=== PATIENT | male | born 1970 | race Caucasian/White ===

== ENCOUNTER 2017-10-08 11:10 | Emergency (ER) | payer OTHER ==
[2017-10-08 11:54] LABS: ADD MAN DIFF? NO
[2017-10-08 12:00] LABS: BASO # 0.1 x10^3/uL (0.0-0.2); BASO % 1 % (0-3); EOS # 0.1 x10^3/uL (0.0-0.7); EOS % 1 % (0-3); HEMATOCRIT 46.5 % (39.0-53.0); LYMPH # 1.8 x10^3/uL (1.0-4.8); LYMPH % 21 % (24-48); MEAN CORPUSCULAR HEMOGLOBIN 30 pg (25-35); MEAN CORPUSCULAR HGB CONC 34 g/dL (31-37); MEAN CORPUSCULAR VOLUME 86 fL (79-100); MONO # 0.4 x10^3/uL (0.0-1.1); MONO % 4 % (0-9); NEUT # 6.2 x10^3uL (1.8-7.7); NEUT % 73 % (31-73); PLATELET COUNT 264 x10^3/uL (140-400); RED BLOOD COUNT 5.39 x10^6/uL (4.30-5.70); WHITE BLOOD COUNT 8.5 x10^3/uL (4.0-11.0)
[2017-10-08 12:14] LABS: ANION GAP 7 (6-14); BLOOD UREA NITROGEN 23 mg/dL (8-26); CALCIUM 8.9 mg/dL (8.5-10.1); CARBON DIOXIDE 30 mmol/L (21-32); CHLORIDE 99 mmol/L (98-107); CREATININE 1.5 mg/dL (0.7-1.3); GFR 50.4; GLUCOSE 355 mg/dL (70-99); POTASSIUM 4.4 mmol/L (3.5-5.1); SODIUM 136 mmol/L (136-145)
[2017-10-08 12:15] LABS: C-REACTIVE PROTEIN 25.2 mg/L (0-3.3)
[2017-10-08 12:21] LABS: LACTIC ACID 2.1 mmol/L (0.4-2.0)
[2017-10-08 13:08] LABS: SEDIMENTATION RATE 22 (0-15)
== END 2017-10-08 14:31 | disposition home or self-care (01) ==
LOC: ER 11:10
DX: E11.621 Type 2 diabetes mellitus with foot ulcer (principal); L97.421 Non-pressure chronic ulcer of left heel and midfoot limited to breakdown of skin; I10 Essential (primary) hypertension; E66.01 Morbid (severe) obesity due to excess calories; Z68.44 Body mass index [BMI] 60.0-69.9, adult; X58.XXXA Exposure to other specified factors, initial encounter; Y93.89 Activity, other specified; Y99.8 Other external cause status; Y92.89 Other specified places as the place of occurrence of the external cause
CPT/HCPCS: 36415; 73630; 80048; 83605; 85025; 85651; 86140; 99285-25

== ENCOUNTER 2017-10-19 13:11 | Inpatient (IN) | payer OTHER ==
[~2017-10-19] VITALS: Ht 170.2 cm; Wt 158.8 kg
[~2017-10-19 13:11] MED LIST: AMLO10TA2 PO; CEPH500T PO; FLUC100T7 PO; FURO40TA4 PO; GLIP5TAB10 PO; HYDR-2758 PO; HYDR100T24 PO; INSU100C4 SQ; INSU100I13 SQ; INSU100I17 SQ; INSU100I27 SQ; LISI-130 PO; LISI-375 PO; METF10003 PO; METO-269 PO; METO100T7 PO; PRAV20TA2 PO
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
[2017-10-19 14:05] LABS: BASO % 1 % (0-3); EOS # 0.1 x10^3/uL (0.0-0.7); EOS % 1 % (0-3); HEMATOCRIT 45.5 % (39.0-53.0); HEMOGLOBIN 15.3 g/dL (13.0-17.5); LYMPH # 1.4 x10^3/uL (1.0-4.8); LYMPH % 21 % (24-48); MEAN CORPUSCULAR HEMOGLOBIN 29 pg (25-35); MEAN CORPUSCULAR HGB CONC 34 g/dL (31-37); MEAN CORPUSCULAR VOLUME 86 fL (79-100); MONO # 0.4 x10^3/uL (0.0-1.1); MONO % 6 % (0-9); NEUT # 4.8 x10^3uL (1.8-7.7); NEUT % 72 % (31-73); PLATELET COUNT 257 x10^3/uL (140-400); RED BLOOD COUNT 5.27 x10^6/uL (4.30-5.70); RED CELL DISTRIBUTION WIDTH 12.9 % (11.5-14.5); WHITE BLOOD COUNT 6.7 x10^3/uL (4.0-11.0)
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
[2017-10-19] MEDS ORDERED: IV NORMAL SALINE 1000ML BAG 1,000 ML IV ONE ×2 (15:00)
[2017-10-19 15:25] LABS: CALCIUM 9.3 mg/dL (8.5-10.1); CREATININE 1.5 mg/dL (0.7-1.3); GFR 50.4; POTASSIUM 3.9 mmol/L (3.5-5.1)
[2017-10-19] MEDS ORDERED: INSULIN REGULAR 100 UNIT/ML 3ML VIAL. IV ONE (15:30)
[2017-10-19 15:33] LABS: ALBUMIN 2.7 g/dL (3.4-5.0); ALBUMIN/GLOBULIN RATIO 0.6 (1.0-1.7); TOTAL BILIRUBIN 0.2 mg/dL (0.2-1.0); TOTAL PROTEIN 7.4 g/dL (6.4-8.2)
[2017-10-19] MEDS ORDERED: DOCUSATE SODIUM 100 MG CAPSULE. PO PRN (15:45)
[2017-10-19] MEDS ORDERED: ACETAMINOPHEN 325 MG TABLET. PO PRN (15:45)
[2017-10-19] MEDS ORDERED: ONDANSETRON PF 4 MG/2 ML VIAL. IV PRN (15:45)
[2017-10-19] MEDS ORDERED: traMADol 50 MG TABLET PO PRN (15:45)
[2017-10-19] MEDS ORDERED: DEXTROSE 50% 25 GM / 50ML DISP.SYRIN. IV PRN (15:45)
[2017-10-19] MEDS ORDERED: PIP/TAZO PER PHARMACY MC PRN (15:45)
[2017-10-19] MEDS ORDERED: MORPHINE SULFATE 2 MG/ML DISP.SYRIN. IV PRN (15:45)
[2017-10-19] MEDS ORDERED: hydrALAZINE 20 MG/ML VIAL. IVP PRN (15:45)
--- NOTE | 2017-10-19 15:59 | PDOC1 ---
History and Physical Date of Admission Date of Admission 10/19/17 Identification/Chief Complaint Chief Complaint left heel wound Source Source: Chart review, Patient History of Present Illness History of Present Illness HPI Patient is a 47 year old morbidly obese male patient who presents to the emergency room with complaints of a worsening wound on the bottom of his left foot. Pt usually sees doc in . has been following a wound care doc in recently for left heel callus. abOUT 1 week ago, he noticed there was a blister at the heel, came to ER, was given keflex and suggested him to stay. Pt said ERP didnot say he had to, so he left. he has mild pain, yesterday evening the patient noticed a foul odor from the wound with clear drainage and came to ER today. Denies fever, chills, cough, sob. He isnot sure if much discharge. Patient also denies any fever. Patient states he has been applying gauze and tape to the area for dressings. The wound initially began as what was a blister on the lateral side of his left foot. Currently, there is a large crack in the skin on the bottom of his foot and an open area in his heel. He has a follow-up appointment with his wound care provider, Dr. Jus Pressley at [facility] on 10/23/17. He was here 2016 for left foot ulcer and got left 2nd toe amputation. Says usually glucose was 120-130s, but in ER 400s, he said didnot take meds since npo. and BP >200. foot XR ok. Past Medical History Cardiovascular: HTN, Hyperlipidemia GI: Constipation Heme/Onc: Anemia NOS Renal/: Chronic renal insuff Endocrine: Diabetes Past Surgical History Past Surgical History r Additional Past Surgical Histo: L 2ND TOE AMPUTATION, R ARM SX Family History Family History: Diabetes, Hypertension Social History ALCOHOL: none Drugs: None Current Medications Current Medications Current Medications Medications (Trade) Dose Ordered Sig/Ronaldo Start Time Stop Time Status Last Admin Dose Admin Acetaminophen (Tylenol) 650 mg PRN Q6HRS PRN 10/19/17 15:45 Cefazolin Sodium 50 ml @ 100 mls/hr 1X ONCE 10/19/17 14:45 10/19/17 15:14 DC 10/19/17 14:56 100 MLS/HR Dextrose (Dextrose 50%-Water Syringe) 12.5 gm PRN Q15MIN PRN 10/19/17 15:45 UNV Docusate Sodium (Colace) 100 mg PRN DAILY PRN 10/19/17 15:45 UNV Heparin Sodium (Porcine) (Heparin Sq) 5,000 unit Q8HRS 10/19/17 22:00 UNV Hydralazine HCl (Apresoline Inj) 10 mg PRN Q4HRS PRN 10/19/17 15:45 UNV Insulin Glargine (Lantus) 30 units QHS 10/19/17 21:00 UNV Insulin Human Lispro (HumaLOG) 15 units TIDAC 10/19/17 16:30 UNV Insulin Human Regular (HumuLIN R VIAL) 10 unit 1X ONCE 10/19/17 15:30 10/19/17 15:31 DC 10/19/17 15:34 10 UNIT Morphine Sulfate (Morphine Sulfate) 2 mg PRN Q2HR PRN 10/19/17 15:45 UNV Ondansetron HCl (Zofran) 4 mg PRN Q6HRS PRN 10/19/17 15:45 UNV Sodium Chloride 1,000 ml @ 1,000 mls/hr 1X ONCE 10/19/17 15:00 10/19/17 15:59 Tramadol HCl (Ultram) 50 mg PRN Q6HRS PRN 10/19/17 15:45 UNV Allergies Allergies Allergies Coded Allergies Type Severity Reaction Last Updated Verified No Known Drug Allergies 05/23/13 No ROS Review of System CONSTITUTIONAL: No fever or chills EYES: No recent changes SKIN: No rash or itching CARDIOVASCULAR: No chest pain, syncope, palpitations, or edema RESPIRATORY: No SOB or cough GASTROINTESTINAL: No nausea, vomiting or abdominal pain NEUROLOGICAL: No headaches or weakness ENDOCRINE: No cold or heat intolerance GENITOURINARY: No urgency or frequency of urination MUSCULOSKELETAL: No back pain or joint pain LYMPHATICS: No enlarged lymph nodes PSYCHIATRIC: No anxiety or depression Physical Exam Physical Exam GEN.: No apparent distress. Alert and oriented. HEENT: Head is normocephalic, atraumatic NECK: Supple. LUNGS: Clear to auscultation. HEART: RRR, S1, S2 present. Peripheral pulses intact ABDOMEN: Soft, nontender. Positive bowel sounds. EXTREMITIES: Without any cyanosis. left heel has open wound about 3cm, deep , mild red discharge. mild tenderness. left 2nd toe amputated. bl leg trace edema. NEUROLOGIC: Normal speech, normal tone PSYCHIATRIC: Normal affect, normal mood. SKIN: No ulcerations Vitals Vitals Vital Signs Date Time Temp Pulse Resp B/P (MAP) Pulse Ox O2 Delivery O2 Flow Rate FiO2 10/19/17 13:20 99.0 94 20 222/105 (144) 99 Room Air 99.0 Labs Labs Laboratory Tests Test 10/19/17 13:50 10/19/17 14:36 White Blood Count 6.7 x10^3/uL (4.0-11.0) Red Blood Count 5.27 x10^6/uL (4.30-5.70) Hemoglobin 15.3 g/dL (13.0-17.5) Hematocrit 45.5 % (39.0-53.0) Mean Corpuscular Volume 86 fL (79-100) Mean Corpuscular Hemoglobin 29 pg (25-35) Mean Corpuscular Hemoglobin Concent 34 g/dL (31-37) Red Cell Distribution Width 12.9 % (11.5-14.5) Platelet Count 257 x10^3/uL (140-400) Neutrophils (%) (Auto) 72 % (31-73) Lymphocytes (%) (Auto) 21 % (24-48) Monocytes (%) (Auto) 6 % (0-9) Eosinophils (%) (Auto) 1 % (0-3) Basophils (%) (Auto) 1 % (0-3) Neutrophils # (Auto) 4.8 x10^3uL (1.8-7.7) Lymphocytes # (Auto) 1.4 x10^3/uL (1.0-4.8) Monocytes # (Auto) 0.4 x10^3/uL (0.0-1.1) Eosinophils # (Auto) 0.1 x10^3/uL (0.0-0.7) Basophils # (Auto) 0.0 x10^3/uL (0.0-0.2) Sodium Level 135 mmol/L (136-145) Potassium Level 3.9 mmol/L (3.5-5.1) Chloride Level 98 mmol/L (98-107) Carbon Dioxide Level 29 mmol/L (21-32) Anion Gap 8 (6-14) Blood Urea Nitrogen 27 mg/dL (8-26) Creatinine 1.5 mg/dL (0.7-1.3) Estimated GFR (Cockcroft-Gault) 50.4 BUN/Creatinine Ratio 18 (6-20) Glucose Level 479 mg/dL (70-99) Lactic Acid Level 2.4 mmol/L (0.4-2.0) Calcium Level 9.3 mg/dL (8.5-10.1) Total Bilirubin 0.2 mg/dL (0.2-1.0) Aspartate Amino Transf (AST/SGOT) 12 U/L (15-37) Alanine Aminotransferase (ALT/SGPT) 20 U/L (16-63) Alkaline Phosphatase 133 U/L (46-116) Total Protein 7.4 g/dL (6.4-8.2) Albumin 2.7 g/dL (3.4-5.0) Albumin/Globulin Ratio 0.6 (1.0-1.7) Glucose (Fingerstick) 431 mg/dL (70-99) Laboratory Tests Test 10/19/17 13:50 10/19/17 14:36 White Blood Count 6.7 x10^3/uL (4.0-11.0) Red Blood Count 5.27 x10^6/uL (4.30-5.70) Hemoglobin 15.3 g/dL (13.0-17.5) Hematocrit 45.5 % (39.0-53.0) Mean Corpuscular Volume 86 fL (79-100) Mean Corpuscular Hemoglobin 29 pg (25-35) Mean Corpuscular Hemoglobin Concent 34 g/dL (31-37) Red Cell Distribution Width 12.9 % (11.5-14.5) Platelet Count 257 x10^3/uL (140-400) Neutrophils (%) (Auto) 72 % (31-73) Lymphocytes (%) (Auto) 21 % (24-48) Monocytes (%) (Auto) 6 % (0-9) Eosinophils (%) (Auto) 1 % (0-3) Basophils (%) (Auto) 1 % (0-3) Neutrophils # (Auto) 4.8 x10^3uL (1.8-7.7) Lymphocytes # (Auto) 1.4 x10^3/uL (1.0-4.8) Monocytes # (Auto) 0.4 x10^3/uL (0.0-1.1) Eosinophils # (Auto) 0.1 x10^3/uL (0.0-0.7) Basophils # (Auto) 0.0 x10^3/uL (0.0-0.2) Sodium Level 135 mmol/L (136-145) Potassium Level 3.9 mmol/L (3.5-5.1) Chloride Level 98 mmol/L (98-107) Carbon Dioxide Level 29 mmol/L (21-32) Anion Gap 8 (6-14) Blood Urea Nitrogen 27 mg/dL (8-26) Creatinine 1.5 mg/dL (0.7-1.3) Estimated GFR (Cockcroft-Gault) 50.4 BUN/Creatinine Ratio 18 (6-20) Glucose Level 479 mg/dL (70-99) Lactic Acid Level 2.4 mmol/L (0.4-2.0) Calcium Level 9.3 mg/dL (8.5-10.1) Total Bilirubin 0.2 mg/dL (0.2-1.0) Aspartate Amino Transf (AST/SGOT) 12 U/L (15-37) Alanine Aminotransferase (ALT/SGPT) 20 U/L (16-63) Alkaline Phosphatase 133 U/L (46-116) Total Protein 7.4 g/dL (6.4-8.2) Albumin 2.7 g/dL (3.4-5.0) Albumin/Globulin Ratio 0.6 (1.0-1.7) Glucose (Fingerstick) 431 mg/dL (70-99) VTE Prophylaxis Ordered VTE Prophylaxis Devices: Yes VTE Pharmacological Prophylaxi: Yes Assessment/Plan Assessment/Plan left heel wound , need to rule out osteomyelitis dm2 on insulin htn urgency CKD3 MILD malnutrition morbid obesity diabetic neuropathy h/o left 2nd foot amputation plan: id, ortho , wound care consult MRI foot. US left lower ext to rule out PAD NEEd verify home meds add lantus 30u qhs, aspart 15u tid, ssi got 2L ivf in ER, regular insulin iv x1 in ER add katja torres for now, fu wound cx, bcx dvt ppx CHERYL DOWLING MD Oct 19, 2017 15:59
--- NOTE | 2017-10-19 16:45 | RAD ---
Left Lower Extremity Arterial Doppler Ultrasound History: Nonhealing wound of the left leg. Comparison: None. Technique: Color Doppler, spectral Doppler, and grayscale images obtained of the lower extremity arteries. Interrogated arteries were common femoral, profunda femoral, superficial femoral, popliteal, posterior tibial, and dorsalis pedis arteries. Findings: Dorsalis pedis artery is not seen, presumably occluded. Other visualized arteries are patent. No focal elevation of velocity to suggest focal stenosis is identified. The patent arteries demonstrate normal triphasic waveforms. Following peak systolic velocities were obtained: Left common femoral artery: 118 cm/sec. Left superficial femoral artery: 123 cm/sec. Left popliteal artery: 90 cm/sec. Left posterior tibial artery: 82 cm/sec. Left dorsalis pedis artery: 0 cm/sec. Grayscale images demonstrate relatively mild atherosclerotic plaquing. Impression: 1. Left dorsalis pedis artery is not visualized, and is presumably occluded. 2. Other arteries of left lower extremity are patent and demonstrate normal triphasic waveforms. 3. Atherosclerosis, thought advanced for patient's age. 4. Correlate with history of diabetes or peripheral vascular disease. Electronically signed by: Justin Clarke MD (10/19/2017 4:41 PM) [place] [id number]
[2017-10-19] MEDS ORDERED: VANCOMYCIN 2 GM in IV NORMAL SALINE 500ML BAG 500 ML IV ONE (17:00)
[2017-10-19] MEDS: INSULIN LISPRO 300 UNITS/3 ML INSULN.PEN. SQ SCH ×2 (17:23→17:27)
[2017-10-19] MEDS: PIPERACILLIN/TAZOBACTAM 4.5 GM in IV NORMAL SALINE 100ML 100 ML IV SCH ×2 (17:39→23:41)
[2017-10-19] MEDS: VANCOMYCIN PER PHARMACY MC PRN ×2 (17:56→19:29)
[2017-10-19] MEDS ORDERED: INSU100I13 SQ (18:04)
[2017-10-19 19:00] VITALS: BP 167/94
[2017-10-19] MEDS: INSULIN GLARGINE 300 UNITS/3 ML INSULN.PEN. SQ SCH (21:12)
[2017-10-19] MEDS: HEPARIN PF for SUB-Q USE 5,000 UNIT/0.5 ML VIAL. SQ SCH (21:13)
[2017-10-19 23:00] VITALS: BP 146/89
[2017-10-20 03:00] VITALS: BP 158/94
[2017-10-20] MEDS: PIPERACILLIN/TAZOBACTAM 4.5 GM in IV NORMAL SALINE 100ML 100 ML IV SCH ×4 (05:30→23:53)
[2017-10-20] MEDS: HEPARIN PF for SUB-Q USE 5,000 UNIT/0.5 ML VIAL. SQ SCH ×3 (05:35→21:17)
[2017-10-20] MEDS ORDERED: VANCOMYCIN 2 GM in IV NORMAL SALINE 500ML BAG 500 ML IV SCH (06:00)
--- NOTE | 2017-10-20 06:46 | PDOC ---
Infectious Disease Note Vital Sign Vital Signs Vital Signs Date Time Temp Pulse Resp B/P (MAP) Pulse Ox O2 Delivery O2 Flow Rate FiO2 10/20/17 03:00 97.8 138 51 158/94 (115) 100 97.8 10/20/17 00:45 Room Air Labs Lab Laboratory Tests Test 10/19/17 13:50 10/19/17 14:36 10/19/17 16:38 10/19/17 17:32 White Blood Count 6.7 x10^3/uL (4.0-11.0) Red Blood Count 5.27 x10^6/uL (4.30-5.70) Hemoglobin 15.3 g/dL (13.0-17.5) Hematocrit 45.5 % (39.0-53.0) Mean Corpuscular Volume 86 fL (79-100) Mean Corpuscular Hemoglobin 29 pg (25-35) Mean Corpuscular Hemoglobin Concent 34 g/dL (31-37) Red Cell Distribution Width 12.9 % (11.5-14.5) Platelet Count 257 x10^3/uL (140-400) Neutrophils (%) (Auto) 72 % (31-73) Lymphocytes (%) (Auto) 21 % (24-48) Monocytes (%) (Auto) 6 % (0-9) Eosinophils (%) (Auto) 1 % (0-3) Basophils (%) (Auto) 1 % (0-3) Neutrophils # (Auto) 4.8 x10^3uL (1.8-7.7) Lymphocytes # (Auto) 1.4 x10^3/uL (1.0-4.8) Monocytes # (Auto) 0.4 x10^3/uL (0.0-1.1) Eosinophils # (Auto) 0.1 x10^3/uL (0.0-0.7) Basophils # (Auto) 0.0 x10^3/uL (0.0-0.2) Sodium Level 135 mmol/L (136-145) Potassium Level 3.9 mmol/L (3.5-5.1) Chloride Level 98 mmol/L (98-107) Carbon Dioxide Level 29 mmol/L (21-32) Anion Gap 8 (6-14) Blood Urea Nitrogen 27 mg/dL (8-26) Creatinine 1.5 mg/dL (0.7-1.3) Estimated GFR (Cockcroft-Gault) 50.4 BUN/Creatinine Ratio 18 (6-20) Glucose Level 479 mg/dL (70-99) Lactic Acid Level 2.4 mmol/L (0.4-2.0) Calcium Level 9.3 mg/dL (8.5-10.1) Total Bilirubin 0.2 mg/dL (0.2-1.0) Aspartate Amino Transf (AST/SGOT) 12 U/L (15-37) Alanine Aminotransferase (ALT/SGPT) 20 U/L (16-63) Alkaline Phosphatase 133 U/L (46-116) Total Protein 7.4 g/dL (6.4-8.2) Albumin 2.7 g/dL (3.4-5.0) Albumin/Globulin Ratio 0.6 (1.0-1.7) Glucose (Fingerstick) 431 mg/dL (70-99) 235 mg/dL (70-99) 259 mg/dL (70-99) Test 10/19/17 19:05 10/19/17 21:02 Lactic Acid Level 2.2 mmol/L (0.4-2.0) Glucose (Fingerstick) 267 mg/dL (70-99) Objective Assessment Left heel ulcer Lactic acidosis DM Tinea PAD CKD Morbid obesity H/p Group B strep/anaerobes and distant Pseudomonas Plan Plan of Care Cont Zosyn D/c Vanc with renal failure Dose Zyvox and Fluconazole Needs debridement May need vascular eval F/u labs and cults Wound care Thank you # [phone] JESU DAVID MD Oct 20, 2017 06:46
[2017-10-20 07:00] VITALS: BP 157/89
[2017-10-20] MEDS: INSULIN LISPRO 300 UNITS/3 ML INSULN.PEN. SQ SCH ×7 (07:56→16:57)
[2017-10-20 08:18] LABS: CALCIUM 8.2 mg/dL (8.5-10.1); CREATININE 1.2 mg/dL (0.7-1.3); GFR 65.2; POTASSIUM 3.7 mmol/L (3.5-5.1)
[2017-10-20 08:25] LABS: BASO % 1 % (0-3); EOS # 0.2 x10^3/uL (0.0-0.7); EOS % 4 % (0-3); HEMATOCRIT 43.5 % (39.0-53.0); HEMOGLOBIN 14.8 g/dL (13.0-17.5); LYMPH # 0.6 x10^3/uL (1.0-4.8); LYMPH % 10 % (24-48); MEAN CORPUSCULAR HEMOGLOBIN 30 pg (25-35); MEAN CORPUSCULAR HGB CONC 34 g/dL (31-37); MEAN CORPUSCULAR VOLUME 87 fL (79-100); MONO # 0.3 x10^3/uL (0.0-1.1); MONO % 6 % (0-9); NEUT # 4.6 x10^3uL (1.8-7.7); NEUT % 80 % (31-73); PLATELET COUNT 223 x10^3/uL (140-400); RED BLOOD COUNT 5.01 x10^6/uL (4.30-5.70); RED CELL DISTRIBUTION WIDTH 13.3 % (11.5-14.5); WHITE BLOOD COUNT 5.7 x10^3/uL (4.0-11.0)
[2017-10-20] MEDS: FLUCONAZOLE 100 MG TABLET. PO SCH (08:56)
[2017-10-20] MEDS: LINEZOLID 600 MG TABLET PO SCH ×2 (08:57→21:16)
[2017-10-20 11:00] VITALS: BP 160/87
--- NOTE | 2017-10-20 12:11 | CONS ---
DATE OF CONSULTATION: 10/20/2017 The patient's room is 574. REQUESTING PHYSICIAN: Dr. Phelps. REASON FOR CONSULTATION: Left heel wound. HISTORY OF PRESENT ILLNESS: The patient is a 47-year-old gentleman with longstanding diabetes who states he checks his sugars periodically and it normally runs about 180s. Also, he recently had been seen at wound care doc, but had not been there for months. He states he goes there periodically, and he debrides callus on his foot. About 10 days ago, he noticed a wound had developed on his left heel. He is uncertain how it happened. He has not changed shoes. He has not had any trauma, denies that he stepped on anything. He states he has enough sensation that he knows when he does step on something. He states the wound started as a blister. He presented to [facility] on 10/08 and was prescribed cephalexin. At that time, apparently he was offered admission; however, he refused. He then returned to the Emergency Room on the as it opened up and had developed a mild increasing pain and odor. He has not had any fevers, chills or sweats. No headaches, no sore throat, no cough, no chest pain, no nausea, no vomiting, no diarrhea. No dysuria, frequency or urgency. He has now been admitted and placed on vancomycin and Zosyn. Cultures are pending. PAST MEDICAL HISTORY: Positive again for the diabetes, history of morbid obesity, history of previous foot infections with group B strep pseudomonas, previous peptostreptococcus. Previous osteomyelitis of his right shoulder, hypertension, I and D of left foot. PAST SURGICAL HISTORY: Positive for left second toe amputation, I and D of his right shoulder. REVIEW OF SYSTEMS: Otherwise negative except for as mentioned above, although sugars have been running over 200, he states now. SOCIAL HISTORY: No tobacco. Works as a mechanical design engineer facilities, lives at home. FAMILY HISTORY: Positive for diabetes, hypertension, heart disease. CURRENT MEDICATIONS: Include Cefazolin x 1. He is on vancomycin and Zosyn. He is on Colace, heparin, hydralazine, insulin, tramadol. Other meds are available and reviewed in the chart. PHYSICAL EXAMINATION: VITAL SIGNS: He has been afebrile since his admission, temperature of 97.8, respirations 18, blood pressure 158/94, satting 100%, heart rate on my exam approximately 20. CONSTITUTIONAL: He is morbidly obese. He is cooperative. He is in no acute distress. HEENT: His pupils are equal. Normal conjunctivae. Oral cavity, oropharynx is clear, some questionable dentition. NECK: Full. No JVD. LUNGS: Decreased in the bases. HEART: S1, S2, not tachycardic. ABDOMEN: Obese, soft, nontender, nondistended, positive bowel sounds. EXTREMITIES: No clubbing, cyanosis. His lower extremity has 1-2+ edema. There are some mild chronic changes of his left lower extremity. His left heel has an area of maceration and open wound, there is no pus. There is no gross erythema. There is no gross odor. He does have significant tenia around his foot. I cannot palpate bone in the wound, left second toe amputation and clean. SKIN: Otherwise without signs of rash. NEUROLOGIC: Nonfocal, answers questions appropriately. PSYCHIATRIC: Affect is pleasant. LABORATORY DATA: White count 6.7, hemoglobin 15.3, platelets of 257, neutrophils 72, lymphs are 21, creatinine 1.5. Glucose was 479. Lactic acid was 2.4. Repeat lactic acid was 2.2. X-rays of his foot, no acute bony abnormality detected. Arterial Doppler, left dorsalis pedis artery not visualized and presumably occluded in other arteries, lower extremity patent and demonstrate normal triphasic waveforms. IMPRESSION: 1. Left heel ulcer. 2. Lactic acidosis. 3. Diabetes. 4. Tinea. 5. Peripheral arterial disease. 6. Chronic kidney disease. 7. Morbid obesity. 8. History of group B strep, anaerobes and distant pseudomonas. RECOMMENDATIONS: 1. We will continue Zosyn. 2. We will discontinue vancomycin with his renal failure, but also because of his morbid obesity may not be able to achieve adequate levels. We will dose Zyvox, fluconazole. He needs debridement, may need vascular evaluation. Follow up labs and cultures and continue local wound care. Thank you for the opportunity to participate in the patient's care. If you have any questions, please do not hesitate to contact me. JESU DAVID MD DR: Alejandra JOB#: [id number] / [id number]
--- NOTE | 2017-10-20 14:32 | PDOC ---
Provider Note Provider Note Vascular consult dictated Imp: 1. morbid obesity 2. 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 DM with peripheral neuropathy 4. no evidence of significant arterial occlusive disease based on arterial duplex scan done in June, 5. status post left 2nd toe and dorsal foot debridement in June with complete healing Rec: 1. IV antibx 2. left heel debridement. Scheduled as add-on for Sunday. SHERIF GARCIA II, MD Oct 20, 2017 14:32
[2017-10-20 15:00] VITALS: BP 180/98
--- NOTE | 2017-10-20 16:37 | PDOC ---
PROGRESS NOTES Chief Complaint Chief Complaint left heel wound , need to rule out osteomyelitis dm2 on insulin htn urgency CKD3 MILD malnutrition morbid obesity diabetic neuropathy h/o left 2nd foot amputation History of Present Illness History of Present Illness DC tele vascular , wound care consult MRI foot. lantus 30u qhs, aspart increase IV abx, ID following dvt ppx Vitals Vitals Vital Signs Date Time Temp Pulse Resp B/P (MAP) Pulse Ox O2 Delivery O2 Flow Rate FiO2 10/20/17 15:00 97.5 68 18 180/98 (125) 95 Room Air 97.5 Physical Exam General: Alert, Oriented X3, Cooperative, No acute distress Heart: Regular rate Lungs: Clear Abdomen: Soft Extremities: No clubbing Skin: No breakdown Labs LABS Laboratory Tests Test 10/19/17 16:38 10/19/17 17:32 10/19/17 19:05 10/19/17 21:02 Glucose (Fingerstick) 235 mg/dL (70-99) 259 mg/dL (70-99) 267 mg/dL (70-99) Lactic Acid Level 2.2 mmol/L (0.4-2.0) Test 10/20/17 07:30 10/20/17 07:42 10/20/17 10:40 White Blood Count 5.7 x10^3/uL (4.0-11.0) Red Blood Count 5.01 x10^6/uL (4.30-5.70) Hemoglobin 14.8 g/dL (13.0-17.5) Hematocrit 43.5 % (39.0-53.0) Mean Corpuscular Volume 87 fL (79-100) Mean Corpuscular Hemoglobin 30 pg (25-35) Mean Corpuscular Hemoglobin Concent 34 g/dL (31-37) Red Cell Distribution Width 13.3 % (11.5-14.5) Platelet Count 223 x10^3/uL (140-400) Neutrophils (%) (Auto) 80 % (31-73) Lymphocytes (%) (Auto) 10 % (24-48) Monocytes (%) (Auto) 6 % (0-9) Eosinophils (%) (Auto) 4 % (0-3) Basophils (%) (Auto) 1 % (0-3) Neutrophils # (Auto) 4.6 x10^3uL (1.8-7.7) Lymphocytes # (Auto) 0.6 x10^3/uL (1.0-4.8) Monocytes # (Auto) 0.3 x10^3/uL (0.0-1.1) Eosinophils # (Auto) 0.2 x10^3/uL (0.0-0.7) Basophils # (Auto) 0.0 x10^3/uL (0.0-0.2) Sodium Level 137 mmol/L (136-145) Potassium Level 3.7 mmol/L (3.5-5.1) Chloride Level 102 mmol/L (98-107) Carbon Dioxide Level 27 mmol/L (21-32) Anion Gap 8 (6-14) Blood Urea Nitrogen 22 mg/dL (8-26) Creatinine 1.2 mg/dL (0.7-1.3) Estimated GFR (Cockcroft-Gault) 65.2 Glucose Level 274 mg/dL (70-99) Calcium Level 8.2 mg/dL (8.5-10.1) Glucose (Fingerstick) 266 mg/dL (70-99) 245 mg/dL (70-99) Assessment and Plan Assessmemt and Plan cont current Comment Review of Relevant I have reviewed the following items harsh (where applicable) has been applied. Labs Laboratory Tests Test 10/19/17 13:50 10/19/17 14:36 10/19/17 16:38 10/19/17 17:32 White Blood Count 6.7 x10^3/uL (4.0-11.0) Red Blood Count 5.27 x10^6/uL (4.30-5.70) Hemoglobin 15.3 g/dL (13.0-17.5) Hematocrit 45.5 % (39.0-53.0) Mean Corpuscular Volume 86 fL (79-100) Mean Corpuscular Hemoglobin 29 pg (25-35) Mean Corpuscular Hemoglobin Concent 34 g/dL (31-37) Red Cell Distribution Width 12.9 % (11.5-14.5) Platelet Count 257 x10^3/uL (140-400) Neutrophils (%) (Auto) 72 % (31-73) Lymphocytes (%) (Auto) 21 % (24-48) Monocytes (%) (Auto) 6 % (0-9) Eosinophils (%) (Auto) 1 % (0-3) Basophils (%) (Auto) 1 % (0-3) Neutrophils # (Auto) 4.8 x10^3uL (1.8-7.7) Lymphocytes # (Auto) 1.4 x10^3/uL (1.0-4.8) Monocytes # (Auto) 0.4 x10^3/uL (0.0-1.1) Eosinophils # (Auto) 0.1 x10^3/uL (0.0-0.7) Basophils # (Auto) 0.0 x10^3/uL (0.0-0.2) Sodium Level 135 mmol/L (136-145) Potassium Level 3.9 mmol/L (3.5-5.1) Chloride Level 98 mmol/L (98-107) Carbon Dioxide Level 29 mmol/L (21-32) Anion Gap 8 (6-14) Blood Urea Nitrogen 27 mg/dL (8-26) Creatinine 1.5 mg/dL (0.7-1.3) Estimated GFR (Cockcroft-Gault) 50.4 BUN/Creatinine Ratio 18 (6-20) Glucose Level 479 mg/dL (70-99) Lactic Acid Level 2.4 mmol/L (0.4-2.0) Calcium Level 9.3 mg/dL (8.5-10.1) Total Bilirubin 0.2 mg/dL (0.2-1.0) Aspartate Amino Transf (AST/SGOT) 12 U/L (15-37) Alanine Aminotransferase (ALT/SGPT) 20 U/L (16-63) Alkaline Phosphatase 133 U/L (46-116) Total Protein 7.4 g/dL (6.4-8.2) Albumin 2.7 g/dL (3.4-5.0) Albumin/Globulin Ratio 0.6 (1.0-1.7) Glucose (Fingerstick) 431 mg/dL (70-99) 235 mg/dL (70-99) 259 mg/dL (70-99) Test 10/19/17 19:05 10/19/17 21:02 10/20/17 07:30 10/20/17 07:42 Lactic Acid Level 2.2 mmol/L (0.4-2.0) Glucose (Fingerstick) 267 mg/dL (70-99) 266 mg/dL (70-99) White Blood Count 5.7 x10^3/uL (4.0-11.0) Red Blood Count 5.01 x10^6/uL (4.30-5.70) Hemoglobin 14.8 g/dL (13.0-17.5) Hematocrit 43.5 % (39.0-53.0) Mean Corpuscular Volume 87 fL (79-100) Mean Corpuscular Hemoglobin 30 pg (25-35) Mean Corpuscular Hemoglobin Concent 34 g/dL (31-37) Red Cell Distribution Width 13.3 % (11.5-14.5) Platelet Count 223 x10^3/uL (140-400) Neutrophils (%) (Auto) 80 % (31-73) Lymphocytes (%) (Auto) 10 % (24-48) Monocytes (%) (Auto) 6 % (0-9) Eosinophils (%) (Auto) 4 % (0-3) Basophils (%) (Auto) 1 % (0-3) Neutrophils # (Auto) 4.6 x10^3uL (1.8-7.7) Lymphocytes # (Auto) 0.6 x10^3/uL (1.0-4.8) Monocytes # (Auto) 0.3 x10^3/uL (0.0-1.1) Eosinophils # (Auto) 0.2 x10^3/uL (0.0-0.7) Basophils # (Auto) 0.0 x10^3/uL (0.0-0.2) Sodium Level 137 mmol/L (136-145) Potassium Level 3.7 mmol/L (3.5-5.1) Chloride Level 102 mmol/L (98-107) Carbon Dioxide Level 27 mmol/L (21-32) Anion Gap 8 (6-14) Blood Urea Nitrogen 22 mg/dL (8-26) Creatinine 1.2 mg/dL (0.7-1.3) Estimated GFR (Cockcroft-Gault) 65.2 Glucose Level 274 mg/dL (70-99) Calcium Level 8.2 mg/dL (8.5-10.1) Test 10/20/17 10:40 Glucose (Fingerstick) 245 mg/dL (70-99) Laboratory Tests Test 10/19/17 16:38 10/19/17 17:32 10/19/17 19:05 10/19/17 21:02 Glucose (Fingerstick) 235 mg/dL (70-99) 259 mg/dL (70-99) 267 mg/dL (70-99) Lactic Acid Level 2.2 mmol/L (0.4-2.0) Test 10/20/17 07:30 10/20/17 07:42 10/20/17 10:40 White Blood Count 5.7 x10^3/uL (4.0-11.0) Red Blood Count 5.01 x10^6/uL (4.30-5.70) Hemoglobin 14.8 g/dL (13.0-17.5) Hematocrit 43.5 % (39.0-53.0) Mean Corpuscular Volume 87 fL (79-100) Mean Corpuscular Hemoglobin 30 pg (25-35) Mean Corpuscular Hemoglobin Concent 34 g/dL (31-37) Red Cell Distribution Width 13.3 % (11.5-14.5) Platelet Count 223 x10^3/uL (140-400) Neutrophils (%) (Auto) 80 % (31-73) Lymphocytes (%) (Auto) 10 % (24-48) Monocytes (%) (Auto) 6 % (0-9) Eosinophils (%) (Auto) 4 % (0-3) Basophils (%) (Auto) 1 % (0-3) Neutrophils # (Auto) 4.6 x10^3uL (1.8-7.7) Lymphocytes # (Auto) 0.6 x10^3/uL (1.0-4.8) Monocytes # (Auto) 0.3 x10^3/uL (0.0-1.1) Eosinophils # (Auto) 0.2 x10^3/uL (0.0-0.7) Basophils # (Auto) 0.0 x10^3/uL (0.0-0.2) Sodium Level 137 mmol/L (136-145) Potassium Level 3.7 mmol/L (3.5-5.1) Chloride Level 102 mmol/L (98-107) Carbon Dioxide Level 27 mmol/L (21-32) Anion Gap 8 (6-14) Blood Urea Nitrogen 22 mg/dL (8-26) Creatinine 1.2 mg/dL (0.7-1.3) Estimated GFR (Cockcroft-Gault) 65.2 Glucose Level 274 mg/dL (70-99) Calcium Level 8.2 mg/dL (8.5-10.1) Glucose (Fingerstick) 266 mg/dL (70-99) 245 mg/dL (70-99) Microbiology 10/19/17 Blood Culture - Preliminary, Resulted NO GROWTH AFTER 1 DAY Medications Current Medications Cefazolin Sodium 50 ml @ 100 mls/hr 1X ONCE IV Last administered on at 14:56; Start 10/19/17 at 14:45; Stop 10/19/17 at 15:14; Status DC Sodium Chloride 1,000 ml @ 1,000 mls/hr 1X ONCE IV Last administered on at 14:55; Start 10/19/17 at 15:00; Stop 10/19/17 at 15:59; Status DC Sodium Chloride 1,000 ml @ 1,000 mls/hr 1X ONCE IV Last administered on at 16:35; Start 10/19/17 at 15:00; Stop 10/19/17 at 15:59; Status DC Insulin Human Regular (HumuLIN R VIAL) 10 unit 1X ONCE IV Last administered on 10/19/17at 15:34; Start 10/19/17 at 15:30; Stop 10/19/17 at 15:31; Status DC Acetaminophen (Tylenol) 650 mg PRN Q6HRS PRN PO FEVER; Start 10/19/17 at 15:45 Ondansetron HCl (Zofran) 4 mg PRN Q6HRS PRN IV NAUSEA/VOMITING; Start 10/19/17 at 15:45 Morphine Sulfate (Morphine Sulfate) 2 mg PRN Q2HR PRN IV MODERATE TO SEVERE PAIN; Start 10/19/17 at 15:45 Tramadol HCl (Ultram) 50 mg PRN Q6HRS PRN PO MILD TO MODERATE PAIN Last administered on 10/19/17at 23:45; Start 10/19/17 at 15:45 Hydralazine HCl (Apresoline Inj) 10 mg PRN Q4HRS PRN IVP ELEVATED BP, SEE COMMENTS; Start 10/19/17 at 15:45 Docusate Sodium (Colace) 100 mg PRN DAILY PRN PO HARD STOOLS; Start 10/19/17 at 15:45 Insulin Human Lispro (HumaLOG) 0-9 UNITS TIDWMEALS SQ Last administered on 10/20at 11:20; Start 10/19/17 at 17:00 Dextrose (Dextrose 50%-Water Syringe) 12.5 gm PRN Q15MIN PRN IV SEE COMMENTS; Start 10/19/17 at 15:45 Insulin Glargine (Lantus) 30 units QHS SQ Last administered on 10/19/17at 21:12 ; Start 10/19/17 at 21:00 Insulin Human Lispro (HumaLOG) 15 units TIDAC SQ Last administered on at 11:19; Start 10/19/17 at 16:30; Stop 10/20/17 at 13:37; Status DC Heparin Sodium (Porcine) (Heparin Sq) 5,000 unit Q8HRS SQ Last administered on 10/20/17at 05:35; Start 10/19/17 at 22:00 Vancomycin HCl (Vanco Per Pharmacy) 1 each PRN DAILY PRN MC SEE COMMENTS Last administered on 10/19/17at 19:29; Start 10/19/17 at 15:45; Stop 10/20/17 at 06:46 ; Status DC Vancomycin HCl 2 gm/Sodium Chloride 500 ml @ 250 mls/hr ONCE ONCE IV Last administered on 10/19/17at 18:23; Start 10/19/17 at 17:00; Stop 10/19/17 at 18:59 ; Status DC Piperacillin Sod/ Tazobactam Sod 4.5 gm/Sodium Chloride 100 ml @ 200 mls/hr Q6HRS IV Last administered on 10/20/17at 11:22; Start 10/19/17 at 16:30 Piperacillin Sod/ Tazobactam Sod (Zosyn Per Pharmacy) 1 each PRN DAILY PRN MC SEE COMMENTS; Start 10/19/17 at 15:45 Vancomycin HCl 2 gm/Sodium Chloride 500 ml @ 250 mls/hr Q12H IV Last administered on 10/20/17at 05:54; Start 10/20/17 at 06:00; Stop 10/20/17 at 06:46 ; Status DC Vancomycin HCl (Vancomycin Trough Level) 1 each 1X ONCE MC ; Start 10/21/17 at 05:30; Stop 10/21/17 at 05:31; Status Cancel Fluconazole (Diflucan) 200 mg DAILY PO Last administered on 10/20/17at 08:56; Start 10/20/17 at 09:00 Linezolid (Zyvox) 600 mg BID PO Last administered on 10/20/17at 08:57; Start 01/27 at 09:00 Lactobacillus Rhamnosus (Culturelle) 1 cap BID PO ; Start 10/20/17 at 21:00 Insulin Human Lispro (HumaLOG) 18 units TIDAC SQ ; Start 10/20/17 at 14:00 Active Scripts Active Metformin Hcl 1,000 Mg Tablet 1,000 Mg PO BIDWMEALS 30 Days Reported Lantus Solostar (Insulin Glargine,Hum.rec.anlog) 100 Unit/1 Ml Insuln.pen 15 Unit SQ QHS Novolog Flexpen (Insulin Aspart) 100 Unit/1 Ml Insuln.pen 0-15 Unit SQ Novolog Flexpen (Insulin Aspart) 100 Unit/1 Ml Insuln.pen 10 Unit SQ TIDAC Amlodipine Besylate 10 Mg Tablet 10 Mg PO DAILY Hydralazine Hcl 100 Mg Tablet 1 Tab PO TID Furosemide 40 Mg Tablet 1 Tab PO DAILY Lisinopril 40 Mg Tablet 1 Tab PO DAILY Vitals/I & O Vital Sign - Last 24 Hours 10/19/17 10/19/17 10/19/17 10/19/17 19:00 20:00 23:00 23:45 Temp 98.4 98.9 98.4 98.9 Pulse 78 80 Resp 20 22 20 B/P (MAP) 167/94 (118) 146/89 (108) Pulse Ox 100 95 O2 Delivery Room Air Room Air 10/20/17 10/20/17 10/20/17 10/20/17 00:45 03:00 07:00 11:00 Temp 97.8 97.5 96.4 97.8 97.5 96.4 Pulse 138 83 72 Resp 18 51 18 18 B/P (MAP) 158/94 (115) 157/89 (111) 160/87 (111) Pulse Ox 100 92 93 O2 Delivery Room Air Room Air Room Air 10/20/17 15:00 Temp 97.5 97.5 Pulse 68 Resp 18 B/P (MAP) 180/98 (125) Pulse Ox 95 O2 Delivery Room Air Intake and Output 10/19/17 10/19/17 10/20/17 15:00 23:00 07:00 Intake Total 1790 ml 460 ml Balance 1790 ml 460 ml RADHA RAMIREZ MD Oct 20, 2017 16:37
[2017-10-20 19:00] VITALS: BP 176/92
[2017-10-20] MEDS: LACTOBACILLUS RHAMNOSUS GG 1 CAPSULE. PO SCH (21:16)
[2017-10-20] MEDS: INSULIN GLARGINE 300 UNITS/3 ML INSULN.PEN. SQ SCH (21:18)
[2017-10-20 22:45] VITALS: BP 161/91
[2017-10-21 01:08] LABS: HEMOGLOBIN A1C 11.6 % (4.8-5.6)
--- NOTE | 2017-10-21 02:06 | CONS ---
DATE OF CONSULTATION: 10/20/2017 VASCULAR SURGERY CONSULTATION HISTORY OF PRESENT ILLNESS: This is a 47-year-old morbidly obese individual who presented to the Emergency Room with complaints of worsening pain and a wound on his left heel. [facility] He has noticed that the wound has become more progressive over the past few days. He was given Keflex. He is now admitted. Review of his past pertinent history includes evaluation of the left lower extremity by arterial duplex imaging. There was no evidence of significant arterial disease. He underwent left second toe amputation and dorsal foot debridement with wound VAC placement in June, which has healed nicely. PAST MEDICAL HISTORY: Significant for hypertension and hyperlipidemia. He has history of chronic renal insufficiency and diabetes and morbid obesity. PAST SURGICAL HISTORY: Includes left second toe amputation. FAMILY HISTORY: Significant for diabetes and hypertension. SOCIAL HISTORY: Alcohol. MEDICATIONS: Current medications are reviewed. REVIEW OF SYSTEMS: A 12-point review of systems is obtained and is negative, other than what was mentioned in the history. PHYSICAL EXAMINATION: GENERAL: The patient is obese, in no distress. HEENT: Unremarkable. EXTREMITIES: He has no palpable pulses due to his obesity. The left heel has an open wound, which is draining. It is approximately 3 cm with mild discharge. There is draining from the wound. There is no confined abscess. The left second toe amputation site has healed nicely. LABORATORY DATA: White blood cell count is 6.7. IMPRESSION: 1. Neuropathic ulcer, left heel, which will require debridement. 2. Type 2 diabetes. 3. Moderate obesity. PLAN: 1. I agree with IV antibiotics and packing of the wound at this point. 2. He has had arterial duplex imaging back in June, which shows no evidence of significant arterial occlusive disease. 3. We will plan left heel debridement on Sunday. The operation risks and benefits were explained. Thank you for allowing me to evaluate him. SHERIF GARCIA MD DR: ZEE/tyshawn JOB#: [id number] / [id number]
[2017-10-21 03:00] VITALS: BP 162/86
[2017-10-21] MEDS: PIPERACILLIN/TAZOBACTAM 4.5 GM in IV NORMAL SALINE 100ML 100 ML IV SCH ×4 (05:46→23:43)
[2017-10-21] MEDS: HEPARIN PF for SUB-Q USE 5,000 UNIT/0.5 ML VIAL. SQ SCH ×3 (05:46→20:49)
[2017-10-21 07:00] VITALS: BP 154/82
[2017-10-21] MEDS: LINEZOLID 600 MG TABLET PO SCH ×2 (08:31→20:45)
[2017-10-21] MEDS: LACTOBACILLUS RHAMNOSUS GG 1 CAPSULE. PO SCH ×2 (08:31→20:45)
[2017-10-21] MEDS: FLUCONAZOLE 100 MG TABLET. PO SCH (08:31)
[2017-10-21] MEDS: INSULIN LISPRO 300 UNITS/3 ML INSULN.PEN. SQ SCH ×6 (08:37→17:21)
--- NOTE | 2017-10-21 09:46 | PDOC ---
Infectious Disease Note Subjective Subjective No F/S/N/V/D/Rash/SOA Foot ok ROS ROS o/w neg Vital Sign Vital Signs Vital Signs Date Time Temp Pulse Resp B/P (MAP) Pulse Ox O2 Delivery O2 Flow Rate FiO2 10/21/17 07:00 97.9 78 20 154/82 (106) 95 Room Air 97.9 Physical Exam PHYSICAL EXAM CONSTITUTIONAL: He is morbidly obese. He is cooperative. He is in no acute distress. In chair HEENT: His pupils are equal. Normal conjunctivae. Oral cavity, oropharynx is clear, some questionable dentition. NECK: Full. No JVD. LUNGS: Decreased in the bases. HEART: S1, S2, not tachycardic. ABDOMEN: Obese, soft, nontender, nondistended, positive bowel sounds. EXTREMITIES: No clubbing, cyanosis. His lower extremity has 1-2+ edema. There are some mild chronic changes of his left lower extremity. His left heel has an area of maceration and open wound, there is no pus/ less moisture toda. There is no gross erythema. There is no gross odor. He does have significant tenia around his foot. I cannot palpate bone in the wound, left second toe amputation and clean. SKIN: Otherwise without signs of rash. NEUROLOGIC: Nonfocal, answers questions appropriately. PSYCHIATRIC: Affect is pleasant. Labs Lab Laboratory Tests Test 10/20/17 10:40 10/20/17 16:47 10/20/17 20:45 10/21/17 07:45 Glucose (Fingerstick) 245 mg/dL (70-99) 216 mg/dL (70-99) 177 mg/dL (70-99) 195 mg/dL (70-99) Micro Microbiology 10/19/17 Blood Culture - Preliminary, Resulted NO GROWTH AFTER 1 DAY 10/19/17 Anaerobic/Aerobic Culture, Resulted Pending 10/19/17 Anaerobic Culture Result 1 (JEANETTE), Resulted Pending 10/19/17 Aerobic Culture, Resulted Pending 10/19/17 Aerobic Culture Result 1 (JEANETTE), Resulted Pending 10/19/17 Gram Stain - Final, Resulted 10/19/17 Gram Stain Result 1 (JEANETTE) - Final, Resulted 10/19/17 Gram Stain Result 2 (JEANETTE) - Final, Resulted 10/19/17 Gram Stain Result 3 (JEANETTE) - Final, Resulted Objective Assessment Left heel ulcer GPC on gram stain Lactic acidosis DM Tinea PAD CKD Morbid obesity H/p Group B strep/anaerobes and distant Pseudomonas Plan Plan of Care Cont Zosyn/ Zyvox and Fluconazole No debridement per vascular F/u labs and cults Wound care JESU DAVID MD Oct 21, 2017 09:46
[2017-10-21 10:59] VITALS: BP 164/88
--- NOTE | 2017-10-21 12:14 | PDOC ---
PROGRESS NOTES Chief Complaint Chief Complaint left heel wound , surg planned for debridement tomorrow dm2 on insulin htn urgency CKD3 MILD malnutrition morbid obesity, BMI 55 diabetic neuropathy h/o left 2nd foot amputation History of Present Illness History of Present Illness DC tele doing better no pain lantus 30u qhs, aspart increase IV abx, ID following Vitals Vitals Vital Signs Date Time Temp Pulse Resp B/P (MAP) Pulse Ox O2 Delivery O2 Flow Rate FiO2 10/21/17 10:59 97.9 73 18 164/88 (113) 98 Room Air 97.9 Physical Exam Physical Exam CONSTITUTIONAL: He is morbidly obese. He is cooperative. He is in no acute distress. In chair HEENT: His pupils are equal. Normal conjunctivae. Oral cavity, oropharynx is clear, some questionable dentition. NECK: Full. No JVD. LUNGS: Decreased in the bases. HEART: S1, S2, not tachycardic. ABDOMEN: Obese, soft, nontender, nondistended, positive bowel sounds. EXTREMITIES: No clubbing, cyanosis. His lower extremity has 1-2+ edema. There are some mild chronic changes of his left lower extremity. His left heel has an area of maceration and open wound, there is no pus/ less moisture toda. There is no gross erythema. There is no gross odor. He does have significant tenia around his foot. I cannot palpate bone in the wound, left second toe amputation and clean. SKIN: Otherwise without signs of rash. NEUROLOGIC: Nonfocal, answers questions appropriately. PSYCHIATRIC: Affect is pleasant. General: Alert, Oriented X3, Cooperative, No acute distress Heart: Regular rate Lungs: Clear Abdomen: Soft Extremities: No clubbing Skin: No breakdown Labs LABS Laboratory Tests Test 10/20/17 16:47 10/20/17 20:45 10/21/17 07:45 10/21/17 11:27 Glucose (Fingerstick) 216 mg/dL (70-99) 177 mg/dL (70-99) 195 mg/dL (70-99) 219 mg/dL (70-99) Comment Review of Relevant I have reviewed the following items harsh (where applicable) has been applied. Labs Laboratory Tests Test 10/19/17 13:50 10/19/17 14:36 10/19/17 16:38 10/19/17 17:32 White Blood Count 6.7 x10^3/uL (4.0-11.0) Red Blood Count 5.27 x10^6/uL (4.30-5.70) Hemoglobin 15.3 g/dL (13.0-17.5) Hematocrit 45.5 % (39.0-53.0) Mean Corpuscular Volume 86 fL (79-100) Mean Corpuscular Hemoglobin 29 pg (25-35) Mean Corpuscular Hemoglobin Concent 34 g/dL (31-37) Red Cell Distribution Width 12.9 % (11.5-14.5) Platelet Count 257 x10^3/uL (140-400) Neutrophils (%) (Auto) 72 % (31-73) Lymphocytes (%) (Auto) 21 % (24-48) Monocytes (%) (Auto) 6 % (0-9) Eosinophils (%) (Auto) 1 % (0-3) Basophils (%) (Auto) 1 % (0-3) Neutrophils # (Auto) 4.8 x10^3uL (1.8-7.7) Lymphocytes # (Auto) 1.4 x10^3/uL (1.0-4.8) Monocytes # (Auto) 0.4 x10^3/uL (0.0-1.1) Eosinophils # (Auto) 0.1 x10^3/uL (0.0-0.7) Basophils # (Auto) 0.0 x10^3/uL (0.0-0.2) Sodium Level 135 mmol/L (136-145) Potassium Level 3.9 mmol/L (3.5-5.1) Chloride Level 98 mmol/L (98-107) Carbon Dioxide Level 29 mmol/L (21-32) Anion Gap 8 (6-14) Blood Urea Nitrogen 27 mg/dL (8-26) Creatinine 1.5 mg/dL (0.7-1.3) Estimated GFR (Cockcroft-Gault) 50.4 BUN/Creatinine Ratio 18 (6-20) Glucose Level 479 mg/dL (70-99) Lactic Acid Level 2.4 mmol/L (0.4-2.0) Calcium Level 9.3 mg/dL (8.5-10.1) Total Bilirubin 0.2 mg/dL (0.2-1.0) Aspartate Amino Transf (AST/SGOT) 12 U/L (15-37) Alanine Aminotransferase (ALT/SGPT) 20 U/L (16-63) Alkaline Phosphatase 133 U/L (46-116) Total Protein 7.4 g/dL (6.4-8.2) Albumin 2.7 g/dL (3.4-5.0) Albumin/Globulin Ratio 0.6 (1.0-1.7) Glucose (Fingerstick) 431 mg/dL (70-99) 235 mg/dL (70-99) 259 mg/dL (70-99) Test 10/19/17 19:05 10/19/17 21:02 10/20/17 07:30 10/20/17 07:42 Lactic Acid Level 2.2 mmol/L (0.4-2.0) Glucose (Fingerstick) 267 mg/dL (70-99) 266 mg/dL (70-99) White Blood Count 5.7 x10^3/uL (4.0-11.0) Red Blood Count 5.01 x10^6/uL (4.30-5.70) Hemoglobin 14.8 g/dL (13.0-17.5) Hematocrit 43.5 % (39.0-53.0) Mean Corpuscular Volume 87 fL (79-100) Mean Corpuscular Hemoglobin 30 pg (25-35) Mean Corpuscular Hemoglobin Concent 34 g/dL (31-37) Red Cell Distribution Width 13.3 % (11.5-14.5) Platelet Count 223 x10^3/uL (140-400) Neutrophils (%) (Auto) 80 % (31-73) Lymphocytes (%) (Auto) 10 % (24-48) Monocytes (%) (Auto) 6 % (0-9) Eosinophils (%) (Auto) 4 % (0-3) Basophils (%) (Auto) 1 % (0-3) Neutrophils # (Auto) 4.6 x10^3uL (1.8-7.7) Lymphocytes # (Auto) 0.6 x10^3/uL (1.0-4.8) Monocytes # (Auto) 0.3 x10^3/uL (0.0-1.1) Eosinophils # (Auto) 0.2 x10^3/uL (0.0-0.7) Basophils # (Auto) 0.0 x10^3/uL (0.0-0.2) Sodium Level 137 mmol/L (136-145) Potassium Level 3.7 mmol/L (3.5-5.1) Chloride Level 102 mmol/L (98-107) Carbon Dioxide Level 27 mmol/L (21-32) Anion Gap 8 (6-14) Blood Urea Nitrogen 22 mg/dL (8-26) Creatinine 1.2 mg/dL (0.7-1.3) Estimated GFR (Cockcroft-Gault) 65.2 Glucose Level 274 mg/dL (70-99) Hemoglobin A1c 11.6 % (4.8-5.6) Calcium Level 8.2 mg/dL (8.5-10.1) Test 10/20/17 10:40 10/20/17 16:47 10/20/17 20:45 10/21/17 07:45 Glucose (Fingerstick) 245 mg/dL (70-99) 216 mg/dL (70-99) 177 mg/dL (70-99) 195 mg/dL (70-99) Test 10/21/17 11:27 Glucose (Fingerstick) 219 mg/dL (70-99) Laboratory Tests Test 10/20/17 16:47 10/20/17 20:45 10/21/17 07:45 10/21/17 11:27 Glucose (Fingerstick) 216 mg/dL (70-99) 177 mg/dL (70-99) 195 mg/dL (70-99) 219 mg/dL (70-99) Microbiology 10/19/17 Blood Culture - Preliminary, Resulted NO GROWTH AFTER 1 DAY 10/19/17 Anaerobic/Aerobic Culture, Resulted Pending 10/19/17 Anaerobic Culture Result 1 (JEANETTE), Resulted Pending 10/19/17 Aerobic Culture, Resulted Pending 10/19/17 Aerobic Culture Result 1 (JEANETTE), Resulted Pending 10/19/17 Gram Stain - Final, Resulted 10/19/17 Gram Stain Result 1 (JEANETTE) - Final, Resulted 10/19/17 Gram Stain Result 2 (JEANETTE) - Final, Resulted 10/19/17 Gram Stain Result 3 (JEANETTE) - Final, Resulted Medications Current Medications Cefazolin Sodium 50 ml @ 100 mls/hr 1X ONCE IV Last administered on at 14:56; Start 10/19/17 at 14:45; Stop 10/19/17 at 15:14; Status DC Sodium Chloride 1,000 ml @ 1,000 mls/hr 1X ONCE IV Last administered on at 14:55; Start 10/19/17 at 15:00; Stop 10/19/17 at 15:59; Status DC Sodium Chloride 1,000 ml @ 1,000 mls/hr 1X ONCE IV Last administered on at 16:35; Start 10/19/17 at 15:00; Stop 10/19/17 at 15:59; Status DC Insulin Human Regular (HumuLIN R VIAL) 10 unit 1X ONCE IV Last administered on 10/19/17at 15:34; Start 10/19/17 at 15:30; Stop 10/19/17 at 15:31; Status DC Acetaminophen (Tylenol) 650 mg PRN Q6HRS PRN PO FEVER; Start 10/19/17 at 15:45 Ondansetron HCl (Zofran) 4 mg PRN Q6HRS PRN IV NAUSEA/VOMITING; Start 10/19/17 at 15:45 Morphine Sulfate (Morphine Sulfate) 2 mg PRN Q2HR PRN IV MODERATE TO SEVERE PAIN; Start 10/19/17 at 15:45 Tramadol HCl (Ultram) 50 mg PRN Q6HRS PRN PO MILD TO MODERATE PAIN Last administered on 10/19/17at 23:45; Start 10/19/17 at 15:45 Hydralazine HCl (Apresoline Inj) 10 mg PRN Q4HRS PRN IVP ELEVATED BP, SEE COMMENTS; Start 10/19/17 at 15:45 Docusate Sodium (Colace) 100 mg PRN DAILY PRN PO HARD STOOLS; Start 10/19/17 at 15:45 Insulin Human Lispro (HumaLOG) 0-9 UNITS TIDWMEALS SQ Last administered on 10/21at 08:38; Start 10/19/17 at 17:00 Dextrose (Dextrose 50%-Water Syringe) 12.5 gm PRN Q15MIN PRN IV SEE COMMENTS; Start 10/19/17 at 15:45 Insulin Glargine (Lantus) 30 units QHS SQ Last administered on 10/20/17at 21:18 ; Start 10/19/17 at 21:00 Insulin Human Lispro (HumaLOG) 15 units TIDAC SQ Last administered on at 11:19; Start 10/19/17 at 16:30; Stop 10/20/17 at 13:37; Status DC Heparin Sodium (Porcine) (Heparin Sq) 5,000 unit Q8HRS SQ Last administered on 10/20/17at 21:17; Start 10/19/17 at 22:00 Vancomycin HCl (Vanco Per Pharmacy) 1 each PRN DAILY PRN MC SEE COMMENTS Last administered on 10/19/17at 19:29; Start 10/19/17 at 15:45; Stop 10/20/17 at 06:46 ; Status DC Vancomycin HCl 2 gm/Sodium Chloride 500 ml @ 250 mls/hr ONCE ONCE IV Last administered on 10/19/17at 18:23; Start 10/19/17 at 17:00; Stop 10/19/17 at 18:59 ; Status DC Piperacillin Sod/ Tazobactam Sod 4.5 gm/Sodium Chloride 100 ml @ 200 mls/hr Q6HRS IV Last administered on 10/21/17at 05:46; Start 10/19/17 at 16:30 Piperacillin Sod/ Tazobactam Sod (Zosyn Per Pharmacy) 1 each PRN DAILY PRN MC SEE COMMENTS; Start 10/19/17 at 15:45 Vancomycin HCl 2 gm/Sodium Chloride 500 ml @ 250 mls/hr Q12H IV Last administered on 10/20/17at 05:54; Start 10/20/17 at 06:00; Stop 10/20/17 at 06:46 ; Status DC Vancomycin HCl (Vancomycin Trough Level) 1 each 1X ONCE MC ; Start 10/21/17 at 05:30; Stop 10/21/17 at 05:31; Status Cancel Fluconazole (Diflucan) 200 mg DAILY PO Last administered on 10/21/17at 08:31; Start 10/20/17 at 09:00 Linezolid (Zyvox) 600 mg BID PO Last administered on 10/21/17at 08:31; Start 01/27 at 09:00 Lactobacillus Rhamnosus (Culturelle) 1 cap BID PO Last administered on at 08:31; Start 10/20/17 at 21:00 Insulin Human Lispro (HumaLOG) 18 units TIDAC SQ Last administered on at 08:37; Start 10/20/17 at 14:00 Active Scripts Active Metformin Hcl 1,000 Mg Tablet 1,000 Mg PO BIDWMEALS 30 Days Reported Lantus Solostar (Insulin Glargine,Hum.rec.anlog) 100 Unit/1 Ml Insuln.pen 15 Unit SQ QHS Novolog Flexpen (Insulin Aspart) 100 Unit/1 Ml Insuln.pen 0-15 Unit SQ Novolog Flexpen (Insulin Aspart) 100 Unit/1 Ml Insuln.pen 10 Unit SQ TIDAC Amlodipine Besylate 10 Mg Tablet 10 Mg PO DAILY Hydralazine Hcl 100 Mg Tablet 1 Tab PO TID Furosemide 40 Mg Tablet 1 Tab PO DAILY Lisinopril 40 Mg Tablet 1 Tab PO DAILY Vitals/I & O Vital Sign - Last 24 Hours 10/20/17 10/20/17 10/20/17 10/20/17 15:00 19:00 20:00 22:45 Temp 97.5 97.3 98.0 97.5 97.3 98.0 Pulse 68 74 74 Resp 18 16 18 B/P (MAP) 180/98 (125) 176/92 (120) 161/91 (114) Pulse Ox 95 96 94 O2 Delivery Room Air Room Air Room Air Room Air 10/21/17 10/21/17 10/21/17 03:00 07:00 10:59 Temp 98.5 97.9 97.9 98.5 97.9 97.9 Pulse 82 78 73 Resp 17 20 18 B/P (MAP) 162/86 (111) 154/82 (106) 164/88 (113) Pulse Ox 94 95 98 O2 Delivery Room Air Room Air Room Air Intake and Output 10/20/17 10/20/17 10/21/17 15:00 23:00 07:00 Intake Total 270 ml 720 ml 200 ml Balance 270 ml 720 ml 200 ml RADHA RAMIREZ MD Oct 21, 2017 12:13
[2017-10-21 14:58] VITALS: BP 159/80
--- NOTE | 2017-10-21 18:36 | PDOC ---
Provider Note Provider Note S: pt without complaints O: vss, afebrile dressing intact left heel A: neuropathic ulcer left heel morbid obesity P: left heel debridement tomorrow. SHERIF GARCIA II, MD Oct 21, 2017 18:36
[2017-10-21 19:00] VITALS: BP 179/92
[2017-10-21] MEDS: INSULIN GLARGINE 300 UNITS/3 ML INSULN.PEN. SQ SCH (20:48)
[2017-10-21 23:00] VITALS: BP 156/87
[2017-10-22] VITALS (13 sets, daily range): BP systolic 138–195; BP diastolic 86–105
[2017-10-22] MEDS ORDERED: silver sulfADIAZINE 1% CREAM 25GM TUBE. TP ONE (05:41)
[2017-10-22] MEDS ORDERED: LIDOCAINE 1% PF 30 ML VIAL. ONE (05:41)
[2017-10-22] MEDS: PIPERACILLIN/TAZOBACTAM 4.5 GM in IV NORMAL SALINE 100ML 100 ML IV SCH ×4 (05:48→23:58)
[2017-10-22] MEDS: HEPARIN PF for SUB-Q USE 5,000 UNIT/0.5 ML VIAL. SQ SCH ×3 (05:50→21:16)
[2017-10-22] MEDS ORDERED: fentaNYL PF VIAL 100 MCG/2 ML VIAL ONE (08:19)
[2017-10-22] MEDS ORDERED: MIDAZOLAM HCL/PF 2 MG/2 ML VIAL. ONE (08:19)
[2017-10-22] MEDS ORDERED: LIDOCAINE 2% PF Vial for OR 5 ML VIAL. ONE (08:19)
[2017-10-22] MEDS ORDERED: PROPOFOL 20 ML IV ONE (08:19)
[2017-10-22 08:36] LABS: CALCIUM 8.1 mg/dL (8.5-10.1); CREATININE 1.3 mg/dL (0.7-1.3); GFR 59.4; POTASSIUM 3.7 mmol/L (3.5-5.1)
[2017-10-22 08:38] LABS: BASO % 1 % (0-3); EOS # 0.3 x10^3/uL (0.0-0.7); EOS % 4 % (0-3); HEMATOCRIT 43.3 % (39.0-53.0); HEMOGLOBIN 14.5 g/dL (13.0-17.5); LYMPH % 17 % (24-48); MEAN CORPUSCULAR HEMOGLOBIN 29 pg (25-35); MEAN CORPUSCULAR HGB CONC 33 g/dL (31-37); MEAN CORPUSCULAR VOLUME 87 fL (79-100); MONO # 0.3 x10^3/uL (0.0-1.1); MONO % 6 % (0-9); NEUT # 4.5 x10^3uL (1.8-7.7); NEUT % 73 % (31-73); PLATELET COUNT 228 x10^3/uL (140-400); RED BLOOD COUNT 4.99 x10^6/uL (4.30-5.70); RED CELL DISTRIBUTION WIDTH 13.1 % (11.5-14.5); WHITE BLOOD COUNT 6.2 x10^3/uL (4.0-11.0)
[2017-10-22] MEDS: INSULIN LISPRO 300 UNITS/3 ML INSULN.PEN. SQ SCH ×6 (08:48→17:43)
[2017-10-22 08:49] LABS: PROTHROMBIN TIME PATIENT 13.9 SEC (11.7-14.0)
--- NOTE | 2017-10-22 09:00 | PDOC ---
PROGRESS NOTES Chief Complaint Chief Complaint left heel wound , surg planned for debridement today dm2 on insulin htn urgency CKD3 MILD malnutrition morbid obesity, BMI 55 diabetic neuropathy h/o left 2nd foot amputation History of Present Illness History of Present Illness DC tele doing better no pain lantus 30u qhs, aspart increase IV abx, ID following Vitals Vitals Vital Signs Date Time Temp Pulse Resp B/P (MAP) Pulse Ox O2 Delivery O2 Flow Rate FiO2 10/22/17 07:00 98.0 89 20 167/87 (113) 92 Room Air 98.0 Physical Exam Physical Exam CONSTITUTIONAL: He is morbidly obese. He is cooperative. He is in no acute distress. In chair HEENT: His pupils are equal. Normal conjunctivae. Oral cavity, oropharynx is clear, some questionable dentition. NECK: Full. No JVD. LUNGS: Decreased in the bases. HEART: S1, S2, not tachycardic. ABDOMEN: Obese, soft, nontender, nondistended, positive bowel sounds. EXTREMITIES: No clubbing, cyanosis. His lower extremity has 1-2+ edema. There are some mild chronic changes of his left lower extremity. His left heel has an area of maceration and open wound, there is no pus/ less moisture toda. There is no gross erythema. There is no gross odor. He does have significant tenia around his foot. I cannot palpate bone in the wound, left second toe amputation and clean. SKIN: Otherwise without signs of rash. NEUROLOGIC: Nonfocal, answers questions appropriately. PSYCHIATRIC: Affect is pleasant. General: Alert, Oriented X3, Cooperative, No acute distress Heart: Regular rate Lungs: Clear Abdomen: Soft Extremities: No clubbing Skin: No breakdown Labs LABS Laboratory Tests Test 10/21/17 11:27 10/21/17 16:19 10/21/17 20:43 10/22/17 07:25 Glucose (Fingerstick) 219 mg/dL (70-99) 199 mg/dL (70-99) 165 mg/dL (70-99) White Blood Count 6.2 x10^3/uL (4.0-11.0) Red Blood Count 4.99 x10^6/uL (4.30-5.70) Hemoglobin 14.5 g/dL (13.0-17.5) Hematocrit 43.3 % (39.0-53.0) Mean Corpuscular Volume 87 fL (79-100) Mean Corpuscular Hemoglobin 29 pg (25-35) Mean Corpuscular Hemoglobin Concent 33 g/dL (31-37) Red Cell Distribution Width 13.1 % (11.5-14.5) Platelet Count 228 x10^3/uL (140-400) Neutrophils (%) (Auto) 73 % (31-73) Lymphocytes (%) (Auto) 17 % (24-48) Monocytes (%) (Auto) 6 % (0-9) Eosinophils (%) (Auto) 4 % (0-3) Basophils (%) (Auto) 1 % (0-3) Neutrophils # (Auto) 4.5 x10^3uL (1.8-7.7) Lymphocytes # (Auto) 1.0 x10^3/uL (1.0-4.8) Monocytes # (Auto) 0.3 x10^3/uL (0.0-1.1) Eosinophils # (Auto) 0.3 x10^3/uL (0.0-0.7) Basophils # (Auto) 0.0 x10^3/uL (0.0-0.2) Prothrombin Time 13.9 SEC (11.7-14.0) Prothromb Time International Ratio 1.1 (0.8-1.1) Sodium Level 139 mmol/L (136-145) Potassium Level 3.7 mmol/L (3.5-5.1) Chloride Level 105 mmol/L (98-107) Carbon Dioxide Level 28 mmol/L (21-32) Anion Gap 6 (6-14) Blood Urea Nitrogen 14 mg/dL (8-26) Creatinine 1.3 mg/dL (0.7-1.3) Estimated GFR (Cockcroft-Gault) 59.4 Glucose Level 208 mg/dL (70-99) Calcium Level 8.1 mg/dL (8.5-10.1) Test 10/22/17 07:32 Glucose (Fingerstick) 209 mg/dL (70-99) Comment Review of Relevant I have reviewed the following items harsh (where applicable) has been applied. Labs Laboratory Tests Test 10/20/17 10:40 10/20/17 16:47 10/20/17 20:45 8/12/18 07:45 Glucose (Fingerstick) 245 mg/dL (70-99) 216 mg/dL (70-99) 177 mg/dL (70-99) 195 mg/dL (70-99) Test 10/21/17 11:27 10/21/17 16:19 10/21/17 20:43 10/22/17 07:25 Glucose (Fingerstick) 219 mg/dL (70-99) 199 mg/dL (70-99) 165 mg/dL (70-99) White Blood Count 6.2 x10^3/uL (4.0-11.0) Red Blood Count 4.99 x10^6/uL (4.30-5.70) Hemoglobin 14.5 g/dL (13.0-17.5) Hematocrit 43.3 % (39.0-53.0) Mean Corpuscular Volume 87 fL (79-100) Mean Corpuscular Hemoglobin 29 pg (25-35) Mean Corpuscular Hemoglobin Concent 33 g/dL (31-37) Red Cell Distribution Width 13.1 % (11.5-14.5) Platelet Count 228 x10^3/uL (140-400) Neutrophils (%) (Auto) 73 % (31-73) Lymphocytes (%) (Auto) 17 % (24-48) Monocytes (%) (Auto) 6 % (0-9) Eosinophils (%) (Auto) 4 % (0-3) Basophils (%) (Auto) 1 % (0-3) Neutrophils # (Auto) 4.5 x10^3uL (1.8-7.7) Lymphocytes # (Auto) 1.0 x10^3/uL (1.0-4.8) Monocytes # (Auto) 0.3 x10^3/uL (0.0-1.1) Eosinophils # (Auto) 0.3 x10^3/uL (0.0-0.7) Basophils # (Auto) 0.0 x10^3/uL (0.0-0.2) Prothrombin Time 13.9 SEC (11.7-14.0) Prothromb Time International Ratio 1.1 (0.8-1.1) Sodium Level 139 mmol/L (136-145) Potassium Level 3.7 mmol/L (3.5-5.1) Chloride Level 105 mmol/L (98-107) Carbon Dioxide Level 28 mmol/L (21-32) Anion Gap 6 (6-14) Blood Urea Nitrogen 14 mg/dL (8-26) Creatinine 1.3 mg/dL (0.7-1.3) Estimated GFR (Cockcroft-Gault) 59.4 Glucose Level 208 mg/dL (70-99) Calcium Level 8.1 mg/dL (8.5-10.1) Test 10/22/17 07:32 Glucose (Fingerstick) 209 mg/dL (70-99) Laboratory Tests Test 10/21/17 11:27 10/21/17 16:19 10/21/17 20:43 10/22/17 07:25 Glucose (Fingerstick) 219 mg/dL (70-99) 199 mg/dL (70-99) 165 mg/dL (70-99) White Blood Count 6.2 x10^3/uL (4.0-11.0) Red Blood Count 4.99 x10^6/uL (4.30-5.70) Hemoglobin 14.5 g/dL (13.0-17.5) Hematocrit 43.3 % (39.0-53.0) Mean Corpuscular Volume 87 fL (79-100) Mean Corpuscular Hemoglobin 29 pg (25-35) Mean Corpuscular Hemoglobin Concent 33 g/dL (31-37) Red Cell Distribution Width 13.1 % (11.5-14.5) Platelet Count 228 x10^3/uL (140-400) Neutrophils (%) (Auto) 73 % (31-73) Lymphocytes (%) (Auto) 17 % (24-48) Monocytes (%) (Auto) 6 % (0-9) Eosinophils (%) (Auto) 4 % (0-3) Basophils (%) (Auto) 1 % (0-3) Neutrophils # (Auto) 4.5 x10^3uL (1.8-7.7) Lymphocytes # (Auto) 1.0 x10^3/uL (1.0-4.8) Monocytes # (Auto) 0.3 x10^3/uL (0.0-1.1) Eosinophils # (Auto) 0.3 x10^3/uL (0.0-0.7) Basophils # (Auto) 0.0 x10^3/uL (0.0-0.2) Prothrombin Time 13.9 SEC (11.7-14.0) Prothromb Time International Ratio 1.1 (0.8-1.1) Sodium Level 139 mmol/L (136-145) Potassium Level 3.7 mmol/L (3.5-5.1) Chloride Level 105 mmol/L (98-107) Carbon Dioxide Level 28 mmol/L (21-32) Anion Gap 6 (6-14) Blood Urea Nitrogen 14 mg/dL (8-26) Creatinine 1.3 mg/dL (0.7-1.3) Estimated GFR (Cockcroft-Gault) 59.4 Glucose Level 208 mg/dL (70-99) Calcium Level 8.1 mg/dL (8.5-10.1) Test 10/22/17 07:32 Glucose (Fingerstick) 209 mg/dL (70-99) Microbiology 10/19/17 Blood Culture - Preliminary, Resulted NO GROWTH AFTER 2 DAYS 10/19/17 Anaerobic/Aerobic Culture, Resulted Pending 10/19/17 Anaerobic Culture Result 1 (JEANETTE), Resulted Pending 10/19/17 Aerobic Culture - Preliminary, Resulted 10/19/17 Aerobic Culture Result 1 (JEANETTE) - Preliminary, Resulted 10/19/17 Gram Stain - Final, Resulted 10/19/17 Gram Stain Result 1 (JEANETTE) - Final, Resulted 10/19/17 Gram Stain Result 2 (JEANETTE) - Final, Resulted 10/19/17 Gram Stain Result 3 (JEANETTE) - Final, Resulted Medications Current Medications Cefazolin Sodium 50 ml @ 100 mls/hr 1X ONCE IV Last administered on at 14:56; Start 10/19/17 at 14:45; Stop 10/19/17 at 15:14; Status DC Sodium Chloride 1,000 ml @ 1,000 mls/hr 1X ONCE IV Last administered on at 14:55; Start 10/19/17 at 15:00; Stop 10/19/17 at 15:59; Status DC Sodium Chloride 1,000 ml @ 1,000 mls/hr 1X ONCE IV Last administered on at 16:35; Start 10/19/17 at 15:00; Stop 10/19/17 at 15:59; Status DC Insulin Human Regular (HumuLIN R VIAL) 10 unit 1X ONCE IV Last administered on 10/19/17at 15:34; Start 10/19/17 at 15:30; Stop 10/19/17 at 15:31; Status DC Acetaminophen (Tylenol) 650 mg PRN Q6HRS PRN PO FEVER; Start 10/19/17 at 15:45 Ondansetron HCl (Zofran) 4 mg PRN Q6HRS PRN IV NAUSEA/VOMITING; Start 10/19/17 at 15:45 Morphine Sulfate (Morphine Sulfate) 2 mg PRN Q2HR PRN IV MODERATE TO SEVERE PAIN; Start 10/19/17 at 15:45 Tramadol HCl (Ultram) 50 mg PRN Q6HRS PRN PO MILD TO MODERATE PAIN Last administered on 10/19/17at 23:45; Start 10/19/17 at 15:45 Hydralazine HCl (Apresoline Inj) 10 mg PRN Q4HRS PRN IVP ELEVATED BP, SEE COMMENTS; Start 10/19/17 at 15:45 Docusate Sodium (Colace) 100 mg PRN DAILY PRN PO HARD STOOLS; Start 10/19/17 at 15:45 Insulin Human Lispro (HumaLOG) 0-9 UNITS TIDWMEALS SQ Last administered on 10/22at 08:49; Start 10/19/17 at 17:00 Dextrose (Dextrose 50%-Water Syringe) 12.5 gm PRN Q15MIN PRN IV SEE COMMENTS; Start 10/19/17 at 15:45 Insulin Glargine (Lantus) 30 units QHS SQ Last administered on 10/21/17at 20:48 ; Start 10/19/17 at 21:00 Insulin Human Lispro (HumaLOG) 15 units TIDAC SQ Last administered on at 11:19; Start 10/19/17 at 16:30; Stop 10/20/17 at 13:37; Status DC Heparin Sodium (Porcine) (Heparin Sq) 5,000 unit Q8HRS SQ Last administered on 10/20/17at 21:17; Start 10/19/17 at 22:00 Vancomycin HCl (Vanco Per Pharmacy) 1 each PRN DAILY PRN MC SEE COMMENTS Last administered on 10/19/17at 19:29; Start 10/19/17 at 15:45; Stop 10/20/17 at 06:46 ; Status DC Vancomycin HCl 2 gm/Sodium Chloride 500 ml @ 250 mls/hr ONCE ONCE IV Last administered on 10/19/17at 18:23; Start 10/19/17 at 17:00; Stop 10/19/17 at 18:59 ; Status DC Piperacillin Sod/ Tazobactam Sod 4.5 gm/Sodium Chloride 100 ml @ 200 mls/hr Q6HRS IV Last administered on 10/22/17at 05:48; Start 10/19/17 at 16:30 Piperacillin Sod/ Tazobactam Sod (Zosyn Per Pharmacy) 1 each PRN DAILY PRN MC SEE COMMENTS; Start 10/19/17 at 15:45 Vancomycin HCl 2 gm/Sodium Chloride 500 ml @ 250 mls/hr Q12H IV Last administered on 10/20/17at 05:54; Start 10/20/17 at 06:00; Stop 10/20/17 at 06:46 ; Status DC Vancomycin HCl (Vancomycin Trough Level) 1 each 1X ONCE MC ; Start 10/21/17 at 05:30; Stop 10/21/17 at 05:31; Status Cancel Fluconazole (Diflucan) 200 mg DAILY PO Last administered on 10/21/17at 08:31; Start 10/20/17 at 09:00 Linezolid (Zyvox) 600 mg BID PO Last administered on 10/21/17at 20:45; Start 01/27 at 09:00 Lactobacillus Rhamnosus (Culturelle) 1 cap BID PO Last administered on at 20:45; Start 10/20/17 at 21:00 Insulin Human Lispro (HumaLOG) 18 units TIDAC SQ Last administered on at 08:48; Start 10/20/17 at 14:00 Silver Sulfadiazine (Silvadene) 25 kandi STK-MED ONCE TP ; Start 10/22/17 at 05:41 ; Stop 10/22/17 at 06:42; Status DC Lidocaine HCl (Lidocaine 1% Pf) 30 ml STK-MED ONCE .ROUTE ; Start 10/22/17 at 05 :41; Stop 10/22/17 at 06:42; Status DC Propofol 20 ml @ As Directed STK-MED ONCE IV ; Start 10/22/17 at 08:19; Stop at 08:20; Status DC Lidocaine HCl (Lidocaine Pf 2% Vial) 5 ml STK-MED ONCE .ROUTE ; Start 10/22/17 at 08:19; Stop 10/22/17 at 08:20; Status DC Fentanyl Citrate (Fentanyl 2ml Vial) 100 mcg STK-MED ONCE .ROUTE ; Start at 08:19; Stop 10/22/17 at 08:20; Status DC Midazolam HCl (Versed) 2 mg STK-MED ONCE .ROUTE ; Start 10/22/17 at 08:19; Stop 10/22/17 at 08:20; Status DC Active Scripts Active Metformin Hcl 1,000 Mg Tablet 1,000 Mg PO BIDWMEALS 30 Days Reported Lantus Solostar (Insulin Glargine,Hum.rec.anlog) 100 Unit/1 Ml Insuln.pen 15 Unit SQ QHS Novolog Flexpen (Insulin Aspart) 100 Unit/1 Ml Insuln.pen 0-15 Unit SQ Novolog Flexpen (Insulin Aspart) 100 Unit/1 Ml Insuln.pen 10 Unit SQ TIDAC Amlodipine Besylate 10 Mg Tablet 10 Mg PO DAILY Hydralazine Hcl 100 Mg Tablet 1 Tab PO TID Furosemide 40 Mg Tablet 1 Tab PO DAILY Lisinopril 40 Mg Tablet 1 Tab PO DAILY Vitals/I & O Vital Sign - Last 24 Hours 10/21/17 10/21/17 10/21/17 10/21/17 10:59 14:58 19:00 20:00 Temp 97.9 97.7 98.0 97.9 97.7 98.0 Pulse 73 77 79 Resp 18 18 16 B/P (MAP) 164/88 (113) 159/80 (106) 179/92 (121) Pulse Ox 98 98 96 O2 Delivery Room Air Room Air Room Air Room Air 10/21/17 10/22/17 10/22/17 23:00 03:00 07:00 Temp 97.9 98.0 98.0 97.9 98.0 98.0 Pulse 77 76 89 Resp 18 18 20 B/P (MAP) 156/87 (110) 151/86 (107) 167/87 (113) Pulse Ox 94 95 92 O2 Delivery Room Air Room Air Room Air Intake and Output 10/21/17 10/21/1710/22/18 15:00 23:00 07:00 Intake Total 540 ml 1500 ml Output Total 650 ml Balance 540 ml 850 ml LUCERO MCCLURE MD Oct 22, 2017 09:00
--- NOTE | 2017-10-22 10:36 | PDOC4 ---
Operative Note Operative Note Operative Report Dictated Pre-op: Left heel open necrotic wound Post-op: same Surgeon: Dr. Efrem Duke Surgery: Left heel sharp excisional debridement of necrotic open wound removing skin and subcutaneous tissue (no exposed bone) Anesthesia: monitored sedation Blood loss: 10ml EFREM DUKE MD Oct 22, 2017 10:36
--- NOTE | 2017-10-22 12:00 | PDOC ---
Infectious Disease Note Subjective Subjective No F/S/N/V/D/Rash/SOA left Foot debrided today Vital Sign Vital Signs Vital Signs Date Time Temp Pulse Resp B/P (MAP) Pulse Ox O2 Delivery O2 Flow Rate FiO2 10/22/17 11:09 97.8 84 12 160/83 95 Room Air 97.8 10/22/17 10:55 10 Physical Exam PHYSICAL EXAM CONSTITUTIONAL: He is morbidly obese. He is cooperative. He is in no acute distress. In chair HEENT: His pupils are equal. Normal conjunctivae. Oral cavity, oropharynx is clear, some questionable dentition. NECK: Full. No JVD. LUNGS: Decreased in the bases. HEART: S1, S2, not tachycardic. ABDOMEN: Obese, soft, nontender, nondistended, positive bowel sounds. EXTREMITIES: No clubbing, cyanosis. His lower extremity has 1-2+ edema. There are some mild chronic changes of his left lower extremity. His left heel has an area of maceration and open wound, there is no pus/ less moisture toda. There is no gross erythema. There is no gross odor. He does have significant tenia around his foot. I cannot palpate bone in the wound, left second toe amputation and clean. SKIN: Otherwise without signs of rash. NEUROLOGIC: Nonfocal, answers questions appropriately. PSYCHIATRIC: Affect is pleasant. Labs Lab Laboratory Tests Test 10/21/17 16:19 10/21/17 20:43 10/22/17 07:25 10/22/17 07:32 Glucose (Fingerstick) 199 mg/dL (70-99) 165 mg/dL (70-99) 209 mg/dL (70-99) White Blood Count 6.2 x10^3/uL (4.0-11.0) Red Blood Count 4.99 x10^6/uL (4.30-5.70) Hemoglobin 14.5 g/dL (13.0-17.5) Hematocrit 43.3 % (39.0-53.0) Mean Corpuscular Volume 87 fL (79-100) Mean Corpuscular Hemoglobin 29 pg (25-35) Mean Corpuscular Hemoglobin Concent 33 g/dL (31-37) Red Cell Distribution Width 13.1 % (11.5-14.5) Platelet Count 228 x10^3/uL (140-400) Neutrophils (%) (Auto) 73 % (31-73) Lymphocytes (%) (Auto) 17 % (24-48) Monocytes (%) (Auto) 6 % (0-9) Eosinophils (%) (Auto) 4 % (0-3) Basophils (%) (Auto) 1 % (0-3) Neutrophils # (Auto) 4.5 x10^3uL (1.8-7.7) Lymphocytes # (Auto) 1.0 x10^3/uL (1.0-4.8) Monocytes # (Auto) 0.3 x10^3/uL (0.0-1.1) Eosinophils # (Auto) 0.3 x10^3/uL (0.0-0.7) Basophils # (Auto) 0.0 x10^3/uL (0.0-0.2) Prothrombin Time 13.9 SEC (11.7-14.0) Prothromb Time International Ratio 1.1 (0.8-1.1) Sodium Level 139 mmol/L (136-145) Potassium Level 3.7 mmol/L (3.5-5.1) Chloride Level 105 mmol/L (98-107) Carbon Dioxide Level 28 mmol/L (21-32) Anion Gap 6 (6-14) Blood Urea Nitrogen 14 mg/dL (8-26) Creatinine 1.3 mg/dL (0.7-1.3) Estimated GFR (Cockcroft-Gault) 59.4 Glucose Level 208 mg/dL (70-99) Calcium Level 8.1 mg/dL (8.5-10.1) Test 10/22/17 10:42 10/22/17 11:26 Glucose (Fingerstick) 144 mg/dL (70-99) 130 mg/dL (70-99) Micro Microbiology 10/19/17 Blood Culture - Preliminary, Resulted NO GROWTH AFTER 2 DAYS 10/19/17 Anaerobic/Aerobic Culture, Resulted Pending 10/19/17 Anaerobic Culture Result 1 (JEANETTE), Resulted Pending 10/19/17 Aerobic Culture - Preliminary, Resulted 10/19/17 Aerobic Culture Result 1 (JEANETTE) - Preliminary, Resulted 10/19/17 Gram Stain - Final, Resulted 10/19/17 Gram Stain Result 1 (JEANETTE) - Final, Resulted 10/19/17 Gram Stain Result 2 (JEANETTE) - Final, Resulted 10/19/17 Gram Stain Result 3 (JEANETTE) - Final, Resulted Objective Assessment Left heel ulcer GPC on gram stain Lactic acidosis DM Tinea PAD CKD Morbid obesity H/p Group B strep/anaerobes and distant Pseudomonas Plan Plan of Care Cont Zosyn/ Zyvox and Fluconazole debridement done today F/u labs and cults Wound care ROGELIO MCMILLAN MD Oct 22, 2017 12:00 LUCERO MCCLURE MD Oct 22, 2017 15:56
--- NOTE | 2017-10-22 12:01 | OP ---
DATE OF SURGERY: 10/22/2017 SURGEON: Yajaira Duke M.D. ANESTHESIA USED: Monitored sedation. PREOPERATIVE DIAGNOSIS: Left heel open necrotic wound. POSTOPERATIVE DIAGNOSIS: Left heel open necrotic wound, deep to the subcutaneous tissue level. OPERATION PERFORMED: Left heel debridement sharply excising necrotic skin and subcutaneous tissue. BLOOD LOSS: 10 mL. INDICATIONS: The patient is a 47-year-old male with diabetes mellitus who has developed a left heel wound with necrotic tissue within the wound bed. He has good circulation with palpable pedal pulse. Recommendations were made for surgical debridement of his left heel. I explained to him that this would require long-term wound care and a wound VAC in order for the area to heal. He also may need further surgical debridement in the future. DETAILS OF THE OPERATION: The patient was brought into the operating room and placed on a table in supine position. He received monitored sedation throughout the case by the anesthesiologist. His left foot was prepped and draped in normal sterile fashion. Lidocaine was used to anesthetize the skin and subcutaneous tissue around the surgical site on the heel. There was an open wound. I sharply excised necrotic surrounding skin and subcutaneous tissue throughout the wound bed. We got back to healthy deep subcutaneous tissue level and there was no exposure of the bone. There was good bleeding, which was controlled with electrocautery. Surrounding skin was lifted and it was debrided around the wound. There is also a superficial ulceration of the skin, which I used a curette to debride just adjacent to the wound. Irrigated with copious amounts of antibiotic solution. The wound measured approximately 5 cm in width x 5 cm in length x 2 cm in depth after debridement. The wound was packed with antibiotic-soaked gauze, covered with gauze, ABD pad, Kerlix wrap and Vamsi bandage. He tolerated the surgery well with no immediate complications. YAJAIRA DUKE MD DR: CHRISTINA/tyshawn JOB#: [id number] / [id number]
[2017-10-22] MEDS: LINEZOLID 600 MG TABLET PO SCH ×2 (12:32→21:14)
[2017-10-22] MEDS: LACTOBACILLUS RHAMNOSUS GG 1 CAPSULE. PO SCH ×2 (12:32→21:14)
[2017-10-22] MEDS: FLUCONAZOLE 100 MG TABLET. PO SCH (12:32)
[2017-10-22] MEDS: amLODIPine BESYLATE 10 MG TABLET PO SCH (14:55)
[2017-10-22] MEDS: FUROSEMIDE 40 MG TABLET. PO SCH (14:56)
[2017-10-22] MEDS: LISINOPRIL 20 MG TABLET PO SCH (14:56)
[2017-10-22] MEDS ORDERED: INSULIN GLARGINE 300 UNITS/3 ML INSULN.PEN. SQ SCH (21:00)
[2017-10-23 03:00] VITALS: BP 155/83
[2017-10-23] MEDS: PIPERACILLIN/TAZOBACTAM 4.5 GM in IV NORMAL SALINE 100ML 100 ML IV SCH (05:44)
[2017-10-23] MEDS: HEPARIN PF for SUB-Q USE 5,000 UNIT/0.5 ML VIAL. SQ SCH ×3 (05:48→21:49)
[2017-10-23 07:00] VITALS: BP 161/86
[2017-10-23] MEDS: LACTOBACILLUS RHAMNOSUS GG 1 CAPSULE. PO SCH ×2 (08:47→21:39)
[2017-10-23] MEDS: FUROSEMIDE 40 MG TABLET. PO SCH (08:47)
[2017-10-23] MEDS: FLUCONAZOLE 100 MG TABLET. PO SCH (08:47)
[2017-10-23] MEDS: LISINOPRIL 20 MG TABLET PO SCH (08:47)
[2017-10-23] MEDS: amLODIPine BESYLATE 10 MG TABLET PO SCH (08:48)
[2017-10-23] MEDS: INSULIN LISPRO 300 UNITS/3 ML INSULN.PEN. SQ SCH ×6 (08:52→17:24)
--- NOTE | 2017-10-23 10:09 | PDOC ---
PROGRESS NOTES Chief Complaint Chief Complaint left heel wound , s/p debridement 10/22 dm2 on insulin with neuropathy htn urgency CKD3 MILD malnutrition morbid obesity, BMI 55 diabetic neuropathy h/o left 2nd foot amputation History of Present Illness History of Present Illness Inspected with wound care changing the wound About a quarter size wound, round, deep maybe half centimeter depth, with some minimal blood but otherwise looks clean Some postinflammatory hyperpigmentation appreciated seen on both bilateral shins. Blood sugar running high Hemoglobin A1c still pending Plan: Continue 10 units 3 times a day NovoLog, increased to 15 units daily at bedtime CRP is 25 Continue local wound care I did discuss with him about need for losing weight, walking once he gets home etc He understands Dw RN and ID Vitals Vitals Vital Signs Date Time Temp Pulse Resp B/P (MAP) Pulse Ox O2 Delivery O2 Flow Rate FiO2 10/23/17 08:48 84 161/86 10/23/17 08:00 Room Air 10/23/17 07:00 99.1 20 91 99.1 10/22/17 10:55 10 Physical Exam Physical Exam CONSTITUTIONAL: He is morbidly obese. He is cooperative. He is in no acute distress. In chair HEENT: His pupils are equal. Normal conjunctivae. Oral cavity, oropharynx is clear, some questionable dentition. NECK: Full. No JVD. LUNGS: Decreased in the bases. HEART: S1, S2, not tachycardic. ABDOMEN: Obese, soft, nontender, nondistended, positive bowel sounds. EXTREMITIES: No clubbing, cyanosis. His lower extremity has 1-2+ edema. There are some mild chronic changes of his left lower extremity. His left heel has an area of maceration and open wound, there is no pus/ less moisture toda. There is no gross erythema. There is no gross odor. He does have significant tenia around his foot. I cannot palpate bone in the wound, left second toe amputation and clean. SKIN: Otherwise without signs of rash. NEUROLOGIC: Nonfocal, answers questions appropriately. PSYCHIATRIC: Affect is pleasant. General: Alert, Oriented X3, Cooperative, No acute distress Heart: Regular rate Lungs: Clear Abdomen: Soft Extremities: No clubbing Skin: No breakdown Labs LABS Laboratory Tests Test 10/22/17 10:42 10/22/17 11:26 10/22/17 16:30 10/22/17 21:09 Glucose (Fingerstick) 144 mg/dL (70-99) 130 mg/dL (70-99) 209 mg/dL (70-99) 199 mg/dL (70-99) Test 10/23/17 07:20 Glucose (Fingerstick) 220 mg/dL (70-99) Review of Systems Review of Systems A 14 point ROS was completed with the following noted as positive: Other systems reviewed and negative. \CONSTITUTIONAL: No fever or chills EYES: No recent changes SKIN: No rash or itching CARDIOVASCULAR: No chest pain, syncope, palpitations, or edema RESPIRATORY: No SOB or cough GASTROINTESTINAL: No nausea, vomiting or abdominal pain NEUROLOGICAL: No headaches or weakness ENDOCRINE: No cold or heat intolerance GENITOURINARY: No urgency or frequency of urination MUSCULOSKELETAL: No back pain or joint pain LYMPHATICS: No enlarged lymph nodes PSYCHIATRIC: No anxiety or depression Comment Review of Relevant I have reviewed the following items harsh (where applicable) has been applied. Labs Laboratory Tests Test 10/21/17 11:27 10/21/17 16:19 10/21/17 20:43 10/22/17 07:25 Glucose (Fingerstick) 219 mg/dL (70-99) 199 mg/dL (70-99) 165 mg/dL (70-99) White Blood Count 6.2 x10^3/uL (4.0-11.0) Red Blood Count 4.99 x10^6/uL (4.30-5.70) Hemoglobin 14.5 g/dL (13.0-17.5) Hematocrit 43.3 % (39.0-53.0) Mean Corpuscular Volume 87 fL (79-100) Mean Corpuscular Hemoglobin 29 pg (25-35) Mean Corpuscular Hemoglobin Concent 33 g/dL (31-37) Red Cell Distribution Width 13.1 % (11.5-14.5) Platelet Count 228 x10^3/uL (140-400) Neutrophils (%) (Auto) 73 % (31-73) Lymphocytes (%) (Auto) 17 % (24-48) Monocytes (%) (Auto) 6 % (0-9) Eosinophils (%) (Auto) 4 % (0-3) Basophils (%) (Auto) 1 % (0-3) Neutrophils # (Auto) 4.5 x10^3uL (1.8-7.7) Lymphocytes # (Auto) 1.0 x10^3/uL (1.0-4.8) Monocytes # (Auto) 0.3 x10^3/uL (0.0-1.1) Eosinophils # (Auto) 0.3 x10^3/uL (0.0-0.7) Basophils # (Auto) 0.0 x10^3/uL (0.0-0.2) Prothrombin Time 13.9 SEC (11.7-14.0) Prothromb Time International Ratio 1.1 (0.8-1.1) Sodium Level 139 mmol/L (136-145) Potassium Level 3.7 mmol/L (3.5-5.1) Chloride Level 105 mmol/L (98-107) Carbon Dioxide Level 28 mmol/L (21-32) Anion Gap 6 (6-14) Blood Urea Nitrogen 14 mg/dL (8-26) Creatinine 1.3 mg/dL (0.7-1.3) Estimated GFR (Cockcroft-Gault) 59.4 Glucose Level 208 mg/dL (70-99) Calcium Level 8.1 mg/dL (8.5-10.1) Test 10/22/17 07:32 10/22/17 10:42 10/22/17 11:26 10/22/17 16:30 Glucose (Fingerstick) 209 mg/dL (70-99) 144 mg/dL (70-99) 130 mg/dL (70-99) 209 mg/dL (70-99) Test 10/22/17 21:09 10/23/17 07:20 Glucose (Fingerstick) 199 mg/dL (70-99) 220 mg/dL (70-99) Laboratory Tests Test 10/22/17 10:42 10/22/17 11:26 10/22/17 16:30 10/22/17 21:09 Glucose (Fingerstick) 144 mg/dL (70-99) 130 mg/dL (70-99) 209 mg/dL (70-99) 199 mg/dL (70-99) Test 10/23/17 07:20 Glucose (Fingerstick) 220 mg/dL (70-99) Microbiology 10/19/17 Blood Culture - Preliminary, Resulted NO GROWTH AFTER 3 DAYS 10/19/17 Anaerobic/Aerobic Culture - Preliminary, Resulted 10/19/17 Anaerobic Culture Result 1 (JEANETTE) - Preliminary, Resulted 10/19/17 Aerobic Culture - Preliminary, Resulted 10/19/17 Aerobic Culture Result 1 (JEANETTE) - Preliminary, Resulted 10/19/17 Aerobic Culture Result 2 (JEANETTE) - Preliminary, Resulted 10/19/17 Gram Stain - Final, Resulted 10/19/17 Gram Stain Result 1 (JEANETTE) - Final, Resulted 10/19/17 Gram Stain Result 2 (JEANETTE) - Final, Resulted 10/19/17 Gram Stain Result 3 (JEANETTE) - Final, Resulted Medications Current Medications Cefazolin Sodium 50 ml @ 100 mls/hr 1X ONCE IV Last administered on at 14:56; Start 10/19/17 at 14:45; Stop 10/19/17 at 15:14; Status DC Sodium Chloride 1,000 ml @ 1,000 mls/hr 1X ONCE IV Last administered on at 14:55; Start 10/19/17 at 15:00; Stop 10/19/17 at 15:59; Status DC Sodium Chloride 1,000 ml @ 1,000 mls/hr 1X ONCE IV Last administered on at 16:35; Start 10/19/17 at 15:00; Stop 10/19/17 at 15:59; Status DC Insulin Human Regular (HumuLIN R VIAL) 10 unit 1X ONCE IV Last administered on 10/19/17at 15:34; Start 10/19/17 at 15:30; Stop 10/19/17 at 15:31; Status DC Acetaminophen (Tylenol) 650 mg PRN Q6HRS PRN PO FEVER; Start 10/19/17 at 15:45 Ondansetron HCl (Zofran) 4 mg PRN Q6HRS PRN IV NAUSEA/VOMITING; Start 10/19/17 at 15:45 Morphine Sulfate (Morphine Sulfate) 2 mg PRN Q2HR PRN IV MODERATE TO SEVERE PAIN; Start 10/19/17 at 15:45 Tramadol HCl (Ultram) 50 mg PRN Q6HRS PRN PO MILD TO MODERATE PAIN Last administered on 10/19/17at 23:45; Start 10/19/17 at 15:45 Hydralazine HCl (Apresoline Inj) 10 mg PRN Q4HRS PRN IVP ELEVATED BP, SEE COMMENTS; Start 10/19/17 at 15:45 Docusate Sodium (Colace) 100 mg PRN DAILY PRN PO HARD STOOLS; Start 10/19/17 at 15:45 Insulin Human Lispro (HumaLOG) 0-9 UNITS TIDWMEALS SQ Last administered on 10/23at 08:53; Start 10/19/17 at 17:00 Dextrose (Dextrose 50%-Water Syringe) 12.5 gm PRN Q15MIN PRN IV SEE COMMENTS; Start 10/19/17 at 15:45 Insulin Glargine (Lantus) 30 units QHS SQ Last administered on 10/21/17at 20:48 ; Start 10/19/17 at 21:00; Stop 10/22/17 at 14:17; Status DC Insulin Human Lispro (HumaLOG) 15 units TIDAC SQ Last administered on at 11:19; Start 10/19/17 at 16:30; Stop 10/20/17 at 13:37; Status DC Heparin Sodium (Porcine) (Heparin Sq) 5,000 unit Q8HRS SQ Last administered on 10/23/17at 05:48; Start 10/19/17 at 22:00 Vancomycin HCl (Vanco Per Pharmacy) 1 each PRN DAILY PRN MC SEE COMMENTS Last administered on 10/19/17at 19:29; Start 10/19/17 at 15:45; Stop 10/20/17 at 06:46 ; Status DC Vancomycin HCl 2 gm/Sodium Chloride 500 ml @ 250 mls/hr ONCE ONCE IV Last administered on 10/19/17at 18:23; Start 10/19/17 at 17:00; Stop 10/19/17 at 18:59 ; Status DC Piperacillin Sod/ Tazobactam Sod 4.5 gm/Sodium Chloride 100 ml @ 200 mls/hr Q6HRS IV Last administered on 10/23/17at 05:44; Start 10/19/17 at 16:30 Piperacillin Sod/ Tazobactam Sod (Zosyn Per Pharmacy) 1 each PRN DAILY PRN MC SEE COMMENTS; Start 10/19/17 at 15:45 Vancomycin HCl 2 gm/Sodium Chloride 500 ml @ 250 mls/hr Q12H IV Last administered on 10/20/17at 05:54; Start 10/20/17 at 06:00; Stop 10/20/17 at 06:46 ; Status DC Vancomycin HCl (Vancomycin Trough Level) 1 each 1X ONCE MC ; Start 10/21/17 at 05:30; Stop 10/21/17 at 05:31; Status Cancel Fluconazole (Diflucan) 200 mg DAILY PO Last administered on 10/23/17at 08:47; Start 10/20/17 at 09:00 Linezolid (Zyvox) 600 mg BID PO Last administered on 10/22/17at 21:14; Start 01/27 at 09:00 Lactobacillus Rhamnosus (Culturelle) 1 cap BID PO Last administered on at 08:47; Start 10/20/17 at 21:00 Insulin Human Lispro (HumaLOG) 18 units TIDAC SQ Last administered on at 12:41; Start 10/20/17 at 14:00; Stop 10/22/17 at 14:18; Status DC Silver Sulfadiazine (Silvadene) 25 kandi STK-MED ONCE TP ; Start 10/22/17 at 05:41 ; Stop 10/22/17 at 06:42; Status DC Lidocaine HCl (Lidocaine 1% Pf) 30 ml STK-MED ONCE .ROUTE Last administered on 10/22/17at 10:17; Start 10/22/17 at 05:41; Stop 10/22/17 at 06:42; Status DC Propofol 20 ml @ As Directed STK-MED ONCE IV ; Start 10/22/17 at 08:19; Stop at 08:20; Status DC Lidocaine HCl (Lidocaine Pf 2% Vial) 5 ml STK-MED ONCE .ROUTE ; Start 10/22/17 at 08:19; Stop 10/22/17 at 08:20; Status DC Fentanyl Citrate (Fentanyl 2ml Vial) 100 mcg STK-MED ONCE .ROUTE ; Start at 08:19; Stop 10/22/17 at 08:20; Status DC Midazolam HCl (Versed) 2 mg STK-MED ONCE .ROUTE ; Start 10/22/17 at 08:19; Stop 10/22/17 at 08:20; Status DC Cefazolin Sodium 1 gm/Sodium Chloride 500 ml @ 500 mls/hr 1X ONCE IRR Last administered on 10/22/17at 10:17; Start 10/22/17 at 10:00; Stop 10/22/17 at 10:59 ; Status DC Amlodipine Besylate (Norvasc) 10 mg DAILY PO Last administered on 10/23/17at 08: 48; Start 10/22/17 at 14:00 Furosemide (Lasix) 40 mg DAILY PO Last administered on 10/23/17 08:47; Start 10/22/17 at 14:00 Insulin Glargine (Lantus) 15 units QHS SQ Last administered on 10/22/17at 21:18 ; Start 10/22/17 at 21:00; Stop 10/23/17 at 09:50; Status DC Lisinopril (Prinivil) 40 mg DAILY PO Last administered on 10/23/17at 08:47; Start 10/22/17 at 15:00 Hydralazine HCl (Apresoline) 100 mg TID PO Last administered on 10/23/17at 08:48 ; Start 10/22/17 at 14:15 Insulin Human Lispro (HumaLOG) 10 units TIDWMEALS SQ Last administered on at 08:52; Start 10/22/17 at 17:00 Metformin HCl (Glucophage) 1,000 mg BIDWMEALS PO Last administered on at 08:47; Start 10/22/17 at 17:00 Insulin Glargine (Lantus) 20 units QHS SQ ; Start 10/23/17 at 21:00 Active Scripts Active Metformin Hcl 1,000 Mg Tablet 1,000 Mg PO BIDWMEALS 30 Days Reported Lantus Solostar (Insulin Glargine,Hum.rec.anlog) 100 Unit/1 Ml Insuln.pen 15 Unit SQ QHS Novolog Flexpen (Insulin Aspart) 100 Unit/1 Ml Insuln.pen 0-15 Unit SQ Novolog Flexpen (Insulin Aspart) 100 Unit/1 Ml Insuln.pen 10 Unit SQ TIDAC Amlodipine Besylate 10 Mg Tablet 10 Mg PO DAILY Hydralazine Hcl 100 Mg Tablet 1 Tab PO TID Furosemide 40 Mg Tablet 1 Tab PO DAILY Lisinopril 40 Mg Tablet 1 Tab PO DAILY Vitals/I & O Vital Sign - Last 24 Hours 810/22/17 10/22/17 10/22/17 10:38 10:55 11:09 11:15 Temp 97.8 97.8 97.8 97.8 Pulse 86 83 84 79 Resp 12 12 12 20 B/P (MAP) 151/66 152/70 160/83 174/99 (124) Pulse Ox 100 100 95 96 O2 Delivery Simple Mask Simple Mask Room Air Room Air O2 Flow Rate 10 10 10/22/17 10/22/17 10/22/17 10/22/17 11:30 11:45 12:00 12:30 Pulse 78 78 74 80 Resp 20 22 20 20 B/P (MAP) 175/97 (123) 182/92 (122) 184/102 (129) 195/103 (133) Pulse Ox 96 96 95 96 O2 Delivery Room Air Room Air Room Air Room Air 10/22/17 10/22/17 10/22/17 10/22/17 13:00 13:30 14:37 14:54 Pulse 81 83 80 82 Resp 20 20 20 B/P (MAP) 180/92 (121) 164/90 (114) 168/90 (116) 183/105 Pulse Ox 95 95 96 O2 Delivery Room Air Room Air Room Air 10/22/17 10/22/17 10/22/17 10/22/17 14:55 14:56 15:16 19:00 Temp 98.2 98.2 Pulse 82 82 82 84 Resp 18 20 B/P (MAP) 183/105 183/105 183/105 (131) 138/89 (105) Pulse Ox 95 93 O2 Delivery Room Air Room Air 10/22/17 10/22/17 10/22/17 10/22/17 19:00 20:00 21:14 23:00 Temp 97.7 97.7 97.7 97.7 Pulse 84 89 84 Resp 20 20 B/P (MAP) 157/92 (113) 138/89 157/92 (113) Pulse Ox 91 91 O2 Delivery Room Air Room Air Room Air 10/23/17 10/23/17 10/23/17 10/23/17 03:00 07:00 08:00 08:47 Temp 98.0 99.1 98.0 99.1 Pulse 83 84 84 Resp 20 20 B/P (MAP) 155/83 (107) 161/86 (111) 161/86 Pulse Ox 94 91 O2 Delivery Room Air Room Air Room Air 10/23/17 10/23/17 08:48 08:48 Pulse 84 84 B/P (MAP) 161/86 161/86 Intake and Output 10/22/17 10/22/17 10/23/17 15:00 23:00 07:00 Intake Total 360 ml 1340 ml 440 ml Output Total 300 ml Balance 360 ml 1040 ml 440 ml ANISHA NICHOLAS MD Oct 23, 2017 10:09
--- NOTE | 2017-10-23 10:16 | PDOC ---
Infectious Disease Note Subjective Subjective No F/S/N/V/D/Rash/SOA no complaints Vital Sign Vital Signs Vital Signs Date Time Temp Pulse Resp B/P (MAP) Pulse Ox O2 Delivery O2 Flow Rate FiO2 10/23/17 08:48 84 161/86 10/23/17 08:00 Room Air 10/23/17 07:00 99.1 20 91 99.1 10/22/17 10:55 10 Physical Exam PHYSICAL EXAM CONSTITUTIONAL: He is morbidly obese. He is cooperative. He is in no acute distress. In chair HEENT: His pupils are equal. Normal conjunctivae. Oral cavity, oropharynx is clear, some questionable dentition. NECK: Full. No JVD. LUNGS: Decreased in the bases. HEART: S1, S2, not tachycardic. ABDOMEN: Obese, soft, nontender, nondistended, positive bowel sounds. EXTREMITIES: No clubbing, cyanosis. His lower extremity has 1-2+ edema. calcaneal wound is clean with healthy tissue, no bone exposed cannot palpate bone in the wound, left second toe amputation and clean. SKIN: Otherwise without signs of rash. NEUROLOGIC: Nonfocal, answers questions appropriately. PSYCHIATRIC: Affect is pleasant. Labs Lab Laboratory Tests Test 10/22/17 10:42 10/22/17 11:26 10/22/17 16:30 10/22/17 21:09 Glucose (Fingerstick) 144 mg/dL (70-99) 130 mg/dL (70-99) 209 mg/dL (70-99) 199 mg/dL (70-99) Test 10/23/17 07:20 Glucose (Fingerstick) 220 mg/dL (70-99) Objective Assessment Left heel ulcer s/p debridement Lactic acidosis DM Tinea PAD CKD Morbid obesity H/p Group B strep/anaerobes and distant Pseudomonas Plan Plan of Care change Zosyn/ Zyvox and Fluconazole... to po augmentin wound vac off load F/u labs and cults Wound care ROGELIO MCMILLAN MD Oct 23, 2017 10:16
[2017-10-23 10:51] VITALS: BP 174/94
[2017-10-23] MEDS: AMOXICILLIN/K CLAV 875/125MG TABLET. PO SCH ×2 (11:37→21:39)
--- NOTE | 2017-10-23 11:56 | PDOC ---
Provider Note Provider Note AF VSS awake and alert left heel open wound with wound VAC dressing in place POD#1 left heel debridement - continue wound VAC dressing - ok for discharge when medically stable and home vac arranged. will need follow up weekly at the wound care center. EFREM HASTINGS MD Oct 23, 2017 11:56
[2017-10-23 15:09] VITALS: BP 154/93
[2017-10-23 19:00] VITALS: BP 162/96
[2017-10-23] MEDS ORDERED: INSULIN GLARGINE 300 UNITS/3 ML INSULN.PEN. SQ SCH (21:00)
[2017-10-23 23:00] VITALS: BP 149/90
[2017-10-24 03:00] VITALS: BP 156/95
[2017-10-24] MEDS: HEPARIN PF for SUB-Q USE 5,000 UNIT/0.5 ML VIAL. SQ SCH ×2 (05:42→14:21)
[2017-10-24 07:00] VITALS: BP 180/72
[2017-10-24] MEDS: INSULIN LISPRO 300 UNITS/3 ML INSULN.PEN. SQ SCH ×4 (08:00→14:18)
[2017-10-24] MEDS: FUROSEMIDE 40 MG TABLET. PO SCH (08:29)
[2017-10-24] MEDS: LISINOPRIL 20 MG TABLET PO SCH (08:29)
[2017-10-24] MEDS: LACTOBACILLUS RHAMNOSUS GG 1 CAPSULE. PO SCH (08:29)
[2017-10-24] MEDS: AMOXICILLIN/K CLAV 875/125MG TABLET. PO SCH (08:29)
[2017-10-24] MEDS: amLODIPine BESYLATE 10 MG TABLET PO SCH (08:30)
--- NOTE | 2017-10-24 10:43 | PDOC ---
Infectious Disease Note Subjective Subjective No F/S/N/V/D/Rash/SOA no complaints Vital Sign Vital Signs Vital Signs Date Time Temp Pulse Resp B/P (MAP) Pulse Ox O2 Delivery O2 Flow Rate FiO2 10/24/17 08:30 87 180/72 10/24/17 07:00 97.7 22 90 Room Air 97.7 Physical Exam PHYSICAL EXAM CONSTITUTIONAL: He is morbidly obese. He is cooperative. He is in no acute distress. In chair HEENT: His pupils are equal. Normal conjunctivae. Oral cavity, oropharynx is clear, some questionable dentition. NECK: Full. No JVD. LUNGS: Decreased in the bases. HEART: S1, S2, not tachycardic. ABDOMEN: Obese, soft, nontender, nondistended, positive bowel sounds. EXTREMITIES: No clubbing, cyanosis. His lower extremity has 1-2+ edema. calcaneal wound is clean with healthy tissue, no bone exposed cannot palpate bone in the wound, left second toe amputation and clean. SKIN: Otherwise without signs of rash. NEUROLOGIC: Nonfocal, answers questions appropriately. PSYCHIATRIC: Affect is pleasant. Labs Lab Laboratory Tests Test 10/23/17 11:07 10/23/17 16:20 10/23/17 21:25 10/24/17 07:21 Glucose (Fingerstick) 195 mg/dL (70-99) 131 mg/dL (70-99) 174 mg/dL (70-99) 149 mg/dL (70-99) Objective Assessment Left heel ulcer s/p debridement Lactic acidosis DM Tinea PAD CKD Morbid obesity H/p Group B strep/anaerobes and distant Pseudomonas Plan Plan of Care po augmentin x 7 days wound vac off load F/u labs and cults Wound care ROGELIO MCMILLAN MD Oct 24, 2017 10:43
[2017-10-24 11:00] VITALS: BP 147/84
[2017-10-24] MEDS ORDERED: HYDR100T24 PO (12:12)
[2017-10-24] MEDS ORDERED: INSU100I13 SQ (12:12)
[2017-10-24] MEDS ORDERED: AMLO10TA2 PO (12:12)
[2017-10-24] MEDS ORDERED: LISI-130 PO (12:12)
[2017-10-24] MEDS ORDERED: FURO40TA4 PO (12:12)
[2017-10-24] MEDS ORDERED: AMOX1TAB11 PO (12:12)
[2017-10-24] MEDS ORDERED: METF10003 PO (12:12)
--- NOTE | 2017-10-24 12:15 | PDOC3 ---
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 htn urgency CKD3 MILD malnutrition morbid obesity, BMI 55 diabetic neuropathy h/o left 2nd foot amputation Brief Hospital Course Allergies Allergies Coded Allergies Type Severity Reaction Last Updated Verified No Known Drug Allergies 05/23/13 No Vital Signs Vital Signs Date Time Temp Pulse Resp B/P (MAP) Pulse Ox O2 Delivery O2 Flow Rate FiO2 10/24/17 11:00 97.7 80 20 147/84 (105) 94 Room Air 97.7 Lab Results Laboratory Tests Test 10/22/17 16:30 10/22/17 21:09 10/23/17 07:20 10/23/17 11:07 Glucose (Fingerstick) 209 mg/dL (70-99) 199 mg/dL (70-99) 220 mg/dL (70-99) 195 mg/dL (70-99) Test 10/23/17 16:20 10/23/17 21:25 10/24/17 07:21 10/24/17 11:03 Glucose (Fingerstick) 131 mg/dL (70-99) 174 mg/dL (70-99) 149 mg/dL (70-99) 214 mg/dL (70-99) Laboratory Tests Test 10/23/17 16:20 10/23/17 21:25 10/24/17 07:21 10/24/17 11:03 Glucose (Fingerstick) 131 mg/dL (70-99) 174 mg/dL (70-99) 149 mg/dL (70-99) 214 mg/dL (70-99) Brief Hospital Course Mr. Somers is a 47 old pleasant male, with diabetes on insulin with neuropathy, admitted for a diabetic foot ulcer needed surgical I and D by [facility] surgery and now indwelling wound VAC. Cleared by ID to go home with by mouth Augmentin for 7 days. He needs home health because of wound VAC. Blood sugars are not that bad, I did not need to increase his home regimen. He will go home to continue his metformin 1000 twice a day and 10 units NovoLog 3 times a day with meals, correction - I did need to increase his Levemir from 15 units daily at bedtime to 20 units daily at bedtime. His blood pressure tends to run high, but otherwise controlled in his current regimen which includes hydralazine 100 by mouth 3 times a day, Norvasc 10, lisinopril 20 or 40 po qD Discharge disposition home with home health Discharge instructions follow wound care COnsults performed vascular surgery, ID Procedures performed I and D of that left diabetic foot dc 31 mins > 50% dc coordin ation Discharge Information Condition at Discharge: Improved, Stable Disposition/Orders: D/C to Home w/ HH Scheduled Amlodipine Besylate (Amlodipine Besylate) 10 Mg Tablet, 10 MG PO DAILY for 30 Days, #30 Prescribed by: ANISHA NICHOLAS on 10/24/17 1212 Amoxicillin/Potassium Clav (Amox Tr-K Clv 875-125 Mg Tab) 1 Each Tablet, 1 TAB PO BID for 7 Days, #14 Prescribed by: ANISHA NICHOLAS on 10/24/17 1212 Furosemide (Furosemide) 40 Mg Tablet, 1 TAB PO DAILY for 30 Days, #30 Ref 5 Prescribed by: ANISHA NICHOLAS on 10/24/17 1212 Hydralazine Hcl (Hydralazine Hcl) 100 Mg Tablet, 100 TAB PO TID for 30 Days, # 9000 Ref 5 Prescribed by: ANISHA NICHOLAS on 10/24/17 1212 Insulin Aspart (Novolog Flexpen) 100 Unit/1 Ml Insuln.pen, 10 UNIT SQ TIDAC, ( Reported) Entered as Reported by: JESSICA MCKEON on 06/25/15 1758 Last Action: Converted on 10/22/17 1340 by LUCERO MCCLURE MD Insulin Glargine,Hum.rec.anlog (Lantus Solostar) 100 Unit/1 Ml Insuln.pen, 15 UNIT SQ QHS, #15 Ref 3 (Reported) Entered as Reported by: TERENCE GRAJEDA on 10/19/17 1804 Last Action: Continued on 10/22/17 1340 by LUCERO MCCLRUE MD Insulin Glargine,Hum.rec.anlog (Lantus Solostar) 100 Unit/1 Ml Insuln.pen, 20 UNITS SQ QHS for 30 Days Prescribed by: ANISHA NICHOLAS on 10/24/17 1212 Lisinopril (Lisinopril) 40 Mg Tablet, 1 TAB PO DAILY for 30 Days, #30 Ref 5 Prescribed by: ANISHA NICHOLAS on 10/24/17 1212 Metformin Hcl (Metformin Hcl) 1,000 Mg Tablet, 1,000 MG PO BIDWMEALS for 30 Days Prescribed by: ANISHA NICHOLAS on 10/24/17 1212 Miscellaneous Medications Insulin Aspart (Novolog Flexpen) 100 Unit/1 Ml Insuln.pen, 0-15 UNIT SQ, ( Reported) Entered as Reported by: JESSICA MCKEON on 06/25/15 322 Last Action: Reviewed on 10/19/171803 by ANISHA JAVIER MD Oct 24, 2017 12:15
[2017-10-24 14:18] VITALS: BP 147/84
== END 2017-10-24 16:35 | disposition home health service (06) | DRG 853 ==
LOC: ER 13:11 → 5 NORTH 15:10 → 5 SOUTH 16:16
PROVIDERS: ADMIT Internal Medicine; ATTEND Internal Medicine
PROC: 0JBR0ZZ Excision of Left Foot Subcutaneous Tissue and Fascia, Open Approach (ICD-10-PCS; principal; 2017-10-22 09:45)
DX: A41.9 Sepsis, unspecified organism (principal); E11.00 Type 2 diabetes mellitus with hyperosmolarity without nonketotic hyperglycemic-hyperosmolar coma (NKHHC); L97.429 Non-pressure chronic ulcer of left heel and midfoot with unspecified severity; Z68.43 Body mass index [BMI] 50.0-59.9, adult; E11.52 Type 2 diabetes mellitus with diabetic peripheral angiopathy with gangrene; E44.1 Mild protein-calorie malnutrition; B35.9 Dermatophytosis, unspecified; E11.22 Type 2 diabetes mellitus with diabetic chronic kidney disease; E11.40 Type 2 diabetes mellitus with diabetic neuropathy, unspecified; E11.621 Type 2 diabetes mellitus with foot ulcer; E66.01 Morbid (severe) obesity due to excess calories; E78.5 Hyperlipidemia, unspecified; I12.9 Hypertensive chronic kidney disease with stage 1 through stage 4 chronic kidney disease, or unspecified chronic kidney disease; I16.0 Hypertensive urgency; L81.0 Postinflammatory hyperpigmentation; L97.529 Non-pressure chronic ulcer of other part of left foot with unspecified severity; N18.3 Chronic kidney disease, stage 3 (moderate); Z79.4 Long term (current) use of insulin; Z79.899 Other long term (current) drug therapy; Z82.49 Family history of ischemic heart disease and other diseases of the circulatory system; Z83.3 Family history of diabetes mellitus; Z89.422 Acquired absence of other left toe(s)
CPT/HCPCS: 36415; 73630; 80048; 80053; 82962; 83036; 83605; 85025; 85610; 87040; 87071; 87075; 93926; 96365; 96375; A7015; J0690; J1815; J2001; J2250; J2543; J2704; J3010; J3370; J7030; J7040; 99285-25; A4461

== ENCOUNTER → 2017-10-26 | Outpatient (CLI) | payer OTHER ==
[2017-10-24 11:00] VITALS: BP 147/84
[~2017-10-26] MED LIST changes: +AMOX1TAB11 PO
== END | disposition home or self-care (01) ==
LOC: PMGWOUND 10:52
PROVIDERS: ATTEND Preventive Medicine Undersea and Hyperbaric Medicine
DX: E11.621 Type 2 diabetes mellitus with foot ulcer (principal); L97.423 Non-pressure chronic ulcer of left heel and midfoot with necrosis of muscle; I12.9 Hypertensive chronic kidney disease with stage 1 through stage 4 chronic kidney disease, or unspecified chronic kidney disease; E11.22 Type 2 diabetes mellitus with diabetic chronic kidney disease; N18.3 Chronic kidney disease, stage 3 (moderate); E11.52 Type 2 diabetes mellitus with diabetic peripheral angiopathy with gangrene; E11.69 Type 2 diabetes mellitus with other specified complication; M86.8X8 Other osteomyelitis, other site; E78.5 Hyperlipidemia, unspecified; I96 Gangrene, not elsewhere classified; E11.40 Type 2 diabetes mellitus with diabetic neuropathy, unspecified; E66.01 Morbid (severe) obesity due to excess calories; Z68.44 Body mass index [BMI] 60.0-69.9, adult; Z79.4 Long term (current) use of insulin; Z79.899 Other long term (current) drug therapy; Z89.422 Acquired absence of other left toe(s)
CPT/HCPCS: 97597; 97605

== ENCOUNTER → 2017-11-02 | Outpatient (CLI) | payer OTHER ==
[2017-10-24 11:00] VITALS: BP 147/84
== END | disposition home or self-care (01) ==
LOC: PMGWOUND 10:49
PROVIDERS: ATTEND Preventive Medicine Undersea and Hyperbaric Medicine
DX: E11.622 Type 2 diabetes mellitus with other skin ulcer (principal); L97.423 Non-pressure chronic ulcer of left heel and midfoot with necrosis of muscle; I12.9 Hypertensive chronic kidney disease with stage 1 through stage 4 chronic kidney disease, or unspecified chronic kidney disease; E11.22 Type 2 diabetes mellitus with diabetic chronic kidney disease; N18.3 Chronic kidney disease, stage 3 (moderate); E11.40 Type 2 diabetes mellitus with diabetic neuropathy, unspecified; E11.52 Type 2 diabetes mellitus with diabetic peripheral angiopathy with gangrene; E11.00 Type 2 diabetes mellitus with hyperosmolarity without nonketotic hyperglycemic-hyperosmolar coma (NKHHC); E11.69 Type 2 diabetes mellitus with other specified complication; M86.8X8 Other osteomyelitis, other site; E66.01 Morbid (severe) obesity due to excess calories; E78.4 Other hyperlipidemia; I10 Essential (primary) hypertension; B35.8 Other dermatophytoses; Z68.43 Body mass index [BMI] 50.0-59.9, adult; Z89.422 Acquired absence of other left toe(s); Z79.4 Long term (current) use of insulin; Z79.899 Other long term (current) drug therapy
CPT/HCPCS: 11042; 97605

== ENCOUNTER → 2017-11-09 | Outpatient (CLI) | payer OTHER ==
[2017-10-24 11:00] VITALS: BP 147/84
[~2017-11-09] MED LIST changes: -AMLO10TA2 PO; +AMLO10TA6 PO; -METF10003 PO; +METF10007 PO
== END | disposition home or self-care (01) ==
LOC: PMGWOUND 08:59
PROVIDERS: ATTEND Preventive Medicine Undersea and Hyperbaric Medicine
DX: E11.621 Type 2 diabetes mellitus with foot ulcer (principal); L97.423 Non-pressure chronic ulcer of left heel and midfoot with necrosis of muscle; I12.9 Hypertensive chronic kidney disease with stage 1 through stage 4 chronic kidney disease, or unspecified chronic kidney disease; E11.22 Type 2 diabetes mellitus with diabetic chronic kidney disease; N18.3 Chronic kidney disease, stage 3 (moderate); E11.00 Type 2 diabetes mellitus with hyperosmolarity without nonketotic hyperglycemic-hyperosmolar coma (NKHHC); E11.40 Type 2 diabetes mellitus with diabetic neuropathy, unspecified; E11.52 Type 2 diabetes mellitus with diabetic peripheral angiopathy with gangrene; E78.4 Other hyperlipidemia; E66.01 Morbid (severe) obesity due to excess calories; Z68.43 Body mass index [BMI] 50.0-59.9, adult; Z79.4 Long term (current) use of insulin
CPT/HCPCS: 11043; 97605

== ENCOUNTER → 2017-11-16 | Outpatient (CLI) | payer OTHER ==
[2017-10-24 11:00] VITALS: BP 147/84
== END | disposition home or self-care (01) ==
LOC: PMGWOUND 11:32
PROVIDERS: ATTEND Preventive Medicine Undersea and Hyperbaric Medicine
DX: E11.621 Type 2 diabetes mellitus with foot ulcer (principal); L97.423 Non-pressure chronic ulcer of left heel and midfoot with necrosis of muscle; I12.9 Hypertensive chronic kidney disease with stage 1 through stage 4 chronic kidney disease, or unspecified chronic kidney disease; E11.22 Type 2 diabetes mellitus with diabetic chronic kidney disease; N18.3 Chronic kidney disease, stage 3 (moderate); E11.52 Type 2 diabetes mellitus with diabetic peripheral angiopathy with gangrene; I96 Gangrene, not elsewhere classified; E11.00 Type 2 diabetes mellitus with hyperosmolarity without nonketotic hyperglycemic-hyperosmolar coma (NKHHC); E11.69 Type 2 diabetes mellitus with other specified complication; M86.8X8 Other osteomyelitis, other site; E11.40 Type 2 diabetes mellitus with diabetic neuropathy, unspecified; E78.4 Other hyperlipidemia; E66.01 Morbid (severe) obesity due to excess calories; Z68.43 Body mass index [BMI] 50.0-59.9, adult; Z79.4 Long term (current) use of insulin
CPT/HCPCS: 11042; 97605

== ENCOUNTER → 2017-11-23 | Outpatient (CLI) | payer OTHER ==
[2017-10-24 11:00] VITALS: BP 147/84
== END | disposition home or self-care (01) ==
LOC: PMGWOUND 10:35
PROVIDERS: ATTEND Nurse Practitioner Family
DX: E11.621 Type 2 diabetes mellitus with foot ulcer (principal); L97.423 Non-pressure chronic ulcer of left heel and midfoot with necrosis of muscle; I12.9 Hypertensive chronic kidney disease with stage 1 through stage 4 chronic kidney disease, or unspecified chronic kidney disease; E11.22 Type 2 diabetes mellitus with diabetic chronic kidney disease; N18.3 Chronic kidney disease, stage 3 (moderate); E11.00 Type 2 diabetes mellitus with hyperosmolarity without nonketotic hyperglycemic-hyperosmolar coma (NKHHC); E11.40 Type 2 diabetes mellitus with diabetic neuropathy, unspecified; E11.52 Type 2 diabetes mellitus with diabetic peripheral angiopathy with gangrene; I96 Gangrene, not elsewhere classified; E11.69 Type 2 diabetes mellitus with other specified complication; M86.8X8 Other osteomyelitis, other site; E78.4 Other hyperlipidemia; Z79.4 Long term (current) use of insulin; Z79.899 Other long term (current) drug therapy; E66.01 Morbid (severe) obesity due to excess calories; Z68.43 Body mass index [BMI] 50.0-59.9, adult
CPT/HCPCS: 11042; 97605

== ENCOUNTER → 2017-11-30 | Outpatient (CLI) | payer OTHER | END | disposition home or self-care (01) | LOC: PMGWOUND 10:57 | PROVIDERS: ATTEND Preventive Medicine Undersea and Hyperbaric Medicine | DX: E11.621 Type 2 diabetes mellitus with foot ulcer (principal); L97.423 Non-pressure chronic ulcer of left heel and midfoot with necrosis of muscle; I12.9 Hypertensive chronic kidney disease with stage 1 through stage 4 chronic kidney disease, or unspecified chronic kidney disease; E11.22 Type 2 diabetes mellitus with diabetic chronic kidney disease; N18.3 Chronic kidney disease, stage 3 (moderate); E11.00 Type 2 diabetes mellitus with hyperosmolarity without nonketotic hyperglycemic-hyperosmolar coma (NKHHC); E11.40 Type 2 diabetes mellitus with diabetic neuropathy, unspecified; E11.52 Type 2 diabetes mellitus with diabetic peripheral angiopathy with gangrene; I96 Gangrene, not elsewhere classified; E11.69 Type 2 diabetes mellitus with other specified complication; M86.8X8 Other osteomyelitis, other site; L84 Corns and callosities; E78.4 Other hyperlipidemia; E66.01 Morbid (severe) obesity due to excess calories; Z68.43 Body mass index [BMI] 50.0-59.9, adult; Z79.4 Long term (current) use of insulin | CPT/HCPCS: 11042 ==

== ENCOUNTER → 2017-12-07 | Outpatient (CLI) | payer OTHER | END | disposition home or self-care (01) | LOC: PMGWOUND 11:39 | PROVIDERS: ATTEND Preventive Medicine Undersea and Hyperbaric Medicine | DX: E11.621 Type 2 diabetes mellitus with foot ulcer (principal); L97.423 Non-pressure chronic ulcer of left heel and midfoot with necrosis of muscle; I12.9 Hypertensive chronic kidney disease with stage 1 through stage 4 chronic kidney disease, or unspecified chronic kidney disease; E11.22 Type 2 diabetes mellitus with diabetic chronic kidney disease; N18.9 Chronic kidney disease, unspecified; E11.69 Type 2 diabetes mellitus with other specified complication; M86.8X7 Other osteomyelitis, ankle and foot; E11.52 Type 2 diabetes mellitus with diabetic peripheral angiopathy with gangrene; I96 Gangrene, not elsewhere classified; E11.00 Type 2 diabetes mellitus with hyperosmolarity without nonketotic hyperglycemic-hyperosmolar coma (NKHHC); E11.40 Type 2 diabetes mellitus with diabetic neuropathy, unspecified; L84 Corns and callosities; E78.4 Other hyperlipidemia; E66.01 Morbid (severe) obesity due to excess calories; Z68.43 Body mass index [BMI] 50.0-59.9, adult; Z79.4 Long term (current) use of insulin | CPT/HCPCS: 97597 ==

== ENCOUNTER → 2017-12-14 | Outpatient (CLI) | payer OTHER | END | disposition home or self-care (01) | LOC: PMGWOUND 10:23 | PROVIDERS: ATTEND Preventive Medicine Undersea and Hyperbaric Medicine | DX: E11.621 Type 2 diabetes mellitus with foot ulcer (principal); L97.423 Non-pressure chronic ulcer of left heel and midfoot with necrosis of muscle; E11.52 Type 2 diabetes mellitus with diabetic peripheral angiopathy with gangrene; I96 Gangrene, not elsewhere classified; E11.69 Type 2 diabetes mellitus with other specified complication; M86.8X7 Other osteomyelitis, ankle and foot; E11.40 Type 2 diabetes mellitus with diabetic neuropathy, unspecified; I12.9 Hypertensive chronic kidney disease with stage 1 through stage 4 chronic kidney disease, or unspecified chronic kidney disease; E11.22 Type 2 diabetes mellitus with diabetic chronic kidney disease; N18.9 Chronic kidney disease, unspecified; L84 Corns and callosities; J44.9 Chronic obstructive pulmonary disease, unspecified; E78.49 Other hyperlipidemia; E66.01 Morbid (severe) obesity due to excess calories; Z68.43 Body mass index [BMI] 50.0-59.9, adult; Z79.4 Long term (current) use of insulin; Z79.899 Other long term (current) drug therapy; Z89.422 Acquired absence of other left toe(s) | CPT/HCPCS: 99214; G0463 ==

== ENCOUNTER → 2017-12-28 | Outpatient (CLI) | payer OTHER | END | disposition home or self-care (01) | LOC: PMGWOUND 10:05 | PROVIDERS: ATTEND Preventive Medicine Undersea and Hyperbaric Medicine | DX: E11.622 Type 2 diabetes mellitus with other skin ulcer (principal); L97.423 Non-pressure chronic ulcer of left heel and midfoot with necrosis of muscle; E11.69 Type 2 diabetes mellitus with other specified complication; M86.8X7 Other osteomyelitis, ankle and foot; E11.40 Type 2 diabetes mellitus with diabetic neuropathy, unspecified; I96 Gangrene, not elsewhere classified; E11.00 Type 2 diabetes mellitus with hyperosmolarity without nonketotic hyperglycemic-hyperosmolar coma (NKHHC); I12.9 Hypertensive chronic kidney disease with stage 1 through stage 4 chronic kidney disease, or unspecified chronic kidney disease; E11.22 Type 2 diabetes mellitus with diabetic chronic kidney disease; N18.9 Chronic kidney disease, unspecified; L84 Corns and callosities; J44.9 Chronic obstructive pulmonary disease, unspecified; E78.49 Other hyperlipidemia; E66.01 Morbid (severe) obesity due to excess calories; Z68.43 Body mass index [BMI] 50.0-59.9, adult; Z79.4 Long term (current) use of insulin | CPT/HCPCS: 99213 ==

== ENCOUNTER → 2018-08-08 | Outpatient (CLI) | payer OTHER ==
[~2018-08-08] MED LIST changes: -AMLO10TA6 PO; +AMLO10TA8 PO; -HYDR-2758 PO; +HYDR-2761 PO
--- NOTE | 2018-08-08 17:13 | RAD ---
Bilateral knees, 4 views, 08/08/2018: HISTORY: Chronic knee pain The knee joint spaces are fairly well-maintained. There is mild marginal spurring at both knee joints and at the patellofemoral articulations. No fracture or dislocation is evident. There is subcutaneous edema bilaterally. IMPRESSION: 1. Mild degenerative change at both knees. 2. No acute bony abnormality is detected. Electronically signed by: Jordy Lou MD (08/08/2018 5:10 PM) [facility]
== END | disposition home or self-care (01) ==
LOC: RAD 10:24
PROVIDERS: ATTEND Family Medicine
DX: M17.0 Bilateral primary osteoarthritis of knee (principal); G89.29 Other chronic pain
CPT/HCPCS: 73560